=== PATIENT | male | born 1945 ===

== ENCOUNTER 2017-10-16 01:39 | Inpatient (IN) | payer MEDICARE, MEDICAID ==
[2017-10-16 01:47] VITALS: O2SAT 100
[2017-10-16] MEDS ORDERED: Alum-Mag Hydrox-Simethicone Susp (30 mL) PO PRN (02:04)
[2017-10-16] MEDS ORDERED: Magnesium Hydroxide Susp 30 ml UD PO PRN (02:04)
[2017-10-16] MEDS ORDERED: Bismuth Subsalicylate 262 mg/15 ml Sus (240 ml) PO PRN (02:04)
--- NOTE | 2017-10-16 02:13 | PCM.BM ---
<Antonietta Bal - Last Filed: 10/16/17 02:10> Treatment Plan Problems - Problems identified on initial assessmt Hopelessness/Helplessness Date Initiated: 10/16/17 Time Initiated: 02:10 Assessment reference: NA Status: Active Treatment assets and liabiliti Patient Assests: cooperative, negotiates basic needs Patient Liabilities: financial problems, substance abuse - Milieu Protocol Maintain good personal hygiene: daily Encourage regular showers, daily Remind patient to perform daily oral care, every shift Assist patient to perform ADL's Conduct patient checks and document Observation sheet: Q15 minutes Maintain personal safety: every shift Educate patient to report safety concerns to staff, every shift Monitor environment for contraband/sharps Medication safety: Monitor for expected outcome, potential side effects: every shift, Assess barriers to learning: every shift, Assess readiness for medication education: every shift <Erin Cheung - Last Filed: 10/19/17 08:16> - Diagnosis (1) Major depressive disorder Status: Acute Interventions: Medication management, Individual and group therapy, Psychoeducation 10/19/17 08:16 (2) Cocaine abuse Status: Acute Interventions: Individual and group therapy, Psychoeducation, Motivational therapy 10/19/17 08:16 <Delma Barillas - Last Filed: 10/19/17 08:22> Family Contact Family contact: Patient agrees to contact, Other (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 Psycho-education to be provided to patient/ family regarding benefits of medications and treatment adherence. Pt to be encouraged to participate in group milieu to develop effective coping skills to reduce depression and free of suicide ideation. Coordinate discharge resource needs by providing referral for psychiatric treatment follow up in the community. Discharge/Continuing Care - Education Needs Education Needs: Patient Medication, Patient Diagnosis/Disease Process, Patient Coping Skills, Patient Placement options, Patient Community resources, Patient Nutrition, Patient Health Practices/Safety, Patient Personal Hygiene/Grooming, Patient Aftercare Safety Plan - Discharge Discharge Criteria: Tolerates medication w/o severe side effects, Free of Suicidal thoughts, Free of paranoid thoughts, Free of agitation, Normal sleep pattern, Ability to care for self, Reduction of target symptoms Discharge to:: Residential - Additional Comments 10/19/17 08:07 Pt seen and discussed in team meeting. Reason for hospitalization reviewed and discussed. 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 Pt reported he began to feel depressed and suicidal at that time. Pt reported he was referred to [facility] ED by [facility]. Pt reported extensive hx of depression and anxiety. Pt reported hx of prior suicide attempts. Pt reported medication non-compliance for 'long time." Pt's social and medical issues reviewed and discussed. Pt's medications discussed. Tx plan reviewed and pt is agreeable. Pt provided assembly instructions writer with verbal authorization to contact his daughter, Leslie who resides in [place]; however, reported he does not recall her telephone number. [employer] to continue to follow case. - Treatment Team Participation Discussed with Family/SO: No Was Patient/Family/SO present at Treatment Team Meeting: Yes
--- NOTE | 2017-10-16 02:23 | ED PDOC ---
Psych Transfer Clearance - Clearance Statement Clearance Statement: Reviewed vital signs, lab results and transfer papers. Patient clinically stable for psychiatric admission.
[2017-10-16] MEDS: guaiFENesin 100 mg/5 ml Syrup UD PO PRN ×3 (03:50→21:17)
--- NOTE | 2017-10-16 07:09 | CP.PCM.HP ---
Past Patient History - CARDIAC Hx Hypertension: Yes - ENDOCRINE/METABOLIC Hx Diabetes Mellitus Type 2: Yes - HEMATOLOGICAL/ONCOLOGICAL Hx Hepatitis C: Yes - MUSCULOSKELETAL/RHEUMATOLOGICAL Hx Falls: No - GASTROINTESTINAL Other/Comment: liver cirrhosis - PSYCHIATRIC Hx Anxiety: Yes Hx Depression: Yes Hx Substance Use: Yes (more than 40 yrs) - SURGICAL HISTORY Hx Surgeries: Yes (hernia repair through [employer]) - ANESTHESIA Hx Anesthesia: Yes Meds Allergies/Adverse Reactions: Allergies Allergy/AdvReac Type Severity Reaction Status Date / Time No Known Allergies Allergy Verified 10/16/17 01:42 Results - Vital Signs Recent Vital Signs: Last Vital Signs Temp 99.7 F H 10/16/17 05:40 Pulse 82 10/16/17 05:40 Resp 18 10/16/17 05:40 BP 132/74 10/16/17 05:40 Pulse Ox 100 10/16/17 01:43 - Labs Labs: Laboratory Results - last 24 hr 10/16/17 05:38 POC Glucose (mg/dL) 244 H Assessment & Plan - Date & Time Date: 10/16/17 Time: 07:09
[2017-10-16 07:11] LABS: HEMATOCRIT 27.1 % (35.0-51.0); MEAN CELL VOLUME 84.1 fl (80.0-94.0); MEAN CORPUSCULAR HEMOGLOBIN 28.6 pg (27.0-31.0); RED CELL DISTRIBUTION WIDTH 15.7 % (11.5-14.5); WHITE BLOOD COUNT 3.7 K/uL (4.8-10.8)
--- NOTE | 2017-10-16 08:24 | CP.PCM.CON ---
History of Present Illness - History of Present Illness History of Present Illness: PCP: Not on staff reason for Consult: Management of coughing/DM and leg pains Chief Complaint: Depression/coughing The patient was seen and examined in the Psychiatric unit HPI: 72 years old Male with hx of DM II, Hepatitis C, Liver cirrhosis and depression, was transferred from the [facility] to the [facility] for management. There he referred that his car was towed with all his belongings. He became depressed, feeling hopeless and having suicidal thoughts. here at [facility] he refers a non productive cough of 1 day duration, no fever, chest pain nor SOB. He also has worsening of his left leg pain due to his Neuropathy. PMH: HTN; Hepatitis C, and Liver cirrhosis; DM II; Diabetic Neuropathy with left leg pain; Depressive and Anxiety disorder; PSH: Umbilical Hernia Repair; Parenthesis for Ascites SH: Substance abuse with Heroin and Cocaine; Alcohol abuse; smokes rarely one pack a year; live alone FH: States: No known family hx Allergies: NKDA Medication: Reviewed Review of Systems - Constitutional Constitutional: absent: Anorexia, Chills, Fatigue, Fever, Headache - EENT Eyes: absent: Diplopia, Floaters, Requires Corrective Lenses Ears: absent: Decreased Hearing, Ear Discharge, Tinnitus Nose/Mouth/Throat: absent: Epistaxis, Nasal Congestion, Nasal Discharge, Sinus Pain, Sinus Pressure - Cardiovascular Cardiovascular: absent: Chest Pain, Dyspnea, Leg Edema - Respiratory Respiratory: Cough. absent: Dyspnea, Wheezing - Gastrointestinal Gastrointestinal: absent: Constipation, Diarrhea, Nausea, Vomiting Additional comments: Full with Mild diffuse pain to the abdomen, no guarding nor rebound tenderness. - Genitourinary Genitourinary: absent: Dysuria, Flank Pain, Hematuria, Urinary Frequency - Musculoskeletal Musculoskeletal: absent: Arthralgias, Joint Swelling, Numbness Additional comments: Left leg pains - Integumentary Integumentary: absent: Pruritus, Rash, Skin Ulcer, Sores, Striae, Swelling - Neurological Neurological: Paresthesias. absent: Confusion, Focal Weakness Additional comments: Left leg pains - Psychiatric Psychiatric: Anxiety, Depression. absent: Panic Attacks - Endocrine Endocrine: absent: Palpitations, Polydipsia, Polyphagia, Polyuria - Hematologic/Lymphatic Hematologic: absent: Easy Bleeding, Easy Bruising Past Patient History - Past Medical History & Family History Past Medical History?: Yes - Past Social History Smoking Status: Light Smoker < 10 Cigarettes Daily Chewing Tobacco Use: No Cigar Use: No Alcohol: Social Drugs: Cocaine, Opiates Home Situation {Lives}: Alone - CARDIAC Hx Hypertension: Yes - PULMONARY Hx Respiratory Disorders: No - NEUROLOGICAL Hx Neurological Disorder: Yes Other/Comment: Diabetic Neuropathy left leg - HEENT Hx HEENT Problems: No - RENAL Hx Chronic Kidney Disease: No - ENDOCRINE/METABOLIC Hx Diabetes Mellitus Type 2: Yes - HEMATOLOGICAL/ONCOLOGICAL Hx Hepatitis C: Yes - INTEGUMENTARY Hx Dermatological Problems: No - MUSCULOSKELETAL/RHEUMATOLOGICAL Hx Falls: No - GASTROINTESTINAL Other/Comment: liver cirrhosis - GENITOURINARY/GYNECOLOGICAL Hx Genitourinary Disorders: No - PSYCHIATRIC Hx Anxiety: Yes Hx Depression: Yes Hx Substance Use: Yes - SURGICAL HISTORY Hx Surgeries: Yes (hernia repair through [employer]) - ANESTHESIA Hx Anesthesia: Yes Hx Anesthesia Reactions: No Meds Allergies/Adverse Reactions: Allergies Allergy/AdvReac Type Severity Reaction Status Date / Time No Known Allergies Allergy Verified 10/16/17 01:42 - Medications Medications: Current Medications Acetaminophen (Tylenol 325mg Tab) 650 mg PO Q4 PRN PRN Reason: Pain, moderate (4-7) Al Hydrox/Mg Hydrox/Simethicone (Maalox Plus 30 Ml) 30 ml PO Q4 PRN PRN Reason: Dyspepsia Bismuth Subsalicylate (Pepto-Bismol) 524 mg PO Q4 PRN PRN Reason: Diarrhea Gabapentin (Neurontin) 300 mg PO TID BRENNEN Guaifenesin (Robitussin) 100 mg PO Q6 PRN PRN Reason: Cough Last Admin: 10/16/17 03:50 Dose: 100 mg Insulin Human Regular (Humulin R) 0 units SC ACHS [facility] PRN Reason: Protocol Lisinopril (Zestril) 20 mg PO DAILY BRENNEN Lorazepam (Ativan) 0.5 mg PO HS PRN PRN Reason: Insomnia Stop: 10/30/17 02:05 Lorazepam (Ativan) 0.5 mg PO Q6 PRN PRN Reason: Anixety/Agitation Stop: 10/30/17 02:05 Magnesium Hydroxide (Milk Of Magnesia) 30 ml PO HS PRN PRN Reason: Constipation Metformin HCl (Glucophage) 1,000 mg PO BID [facility] Physical Exam - Constitutional Appears: No Acute Distress - Head Exam Head Exam: ATRAUMATIC, NORMAL INSPECTION, NORMOCEPHALIC - Eye Exam Eye Exam: EOMI, Normal appearance Pupil Exam: NORMAL ACCOMODATION, PERRL - ENT Exam ENT Exam: Mucous Membranes Moist, Normal Exam, Normal External Ear Exam - Neck Exam Neck exam: Positive for: Full Rom, Normal Inspection. Negative for: Lymphadenopathy, Tenderness - Respiratory Exam Respiratory Exam: Clear to Auscultation Bilateral. absent: Rales, Rhonchi, Wheezes - Cardiovascular Exam Cardiovascular Exam: REGULAR RHYTHM, +S1, +S2 - GI/Abdominal Exam Additional comments: Full, mild generalized tenderness, no rebound nor guarding. - Rectal Exam Rectal Exam: Deferred - Extremities Exam Extremities exam: Positive for: full ROM, normal inspection. Negative for: pedal edema - Back Exam Back exam: NORMAL INSPECTION. absent: CVA tenderness (L), CVA tenderness (R) - Neurological Exam Neurological exam: Alert, CN II-XII Intact, Oriented x3, Reflexes Normal - Psychiatric Exam Psychiatric exam: Normal Affect, Normal Mood - Skin Skin Exam: Dry, Intact, Normal Color, Warm Results - Vital Signs Recent Vital Signs: Last Vital Signs Temp 99.7 F H 10/16/17 05:40 Pulse 82 10/16/17 05:40 Resp 18 10/16/17 05:40 BP 132/74 10/16/17 05:40 Pulse Ox 100 10/16/17 01:43 - Labs Result Diagrams: 10/16/17 05:30 10/16/17 06:00 Labs: Laboratory Results - last 24 hr 10/16/17 10/16/17 05:30 05:38 WBC 3.7 L RBC 3.22 L Hgb 9.2 L Hct 27.1 L MCV 84.1 MCH 28.6 MCHC 34.0 RDW 15.7 H Plt Count 56 L POC Glucose (mg/dL) 244 H Assessment & Plan - Assessment and Plan (Free Text) Assessment: #. Anxiety aand Depressive disorder #. Suicide IDEATION #. Pancytopenia (.Anemia/ thrombocytopenia/ Leukopenia) #. DM II with Diabetic Neuropathy #. Hepatitis C with Liver Cirrhosis #. Bronchitis Plan: 72 years old Male with hx of DM II, Hepatitis C, Liver cirrhosis and depression , was transferred from the [facility] to the [facility] for management. He became depressed, feeling hopeless and having suicidal thoughts. Here at [facility] he refers a non productive cough of 2 day duration, along with pains to the left lower extremity. #. Anxiety and Depressive disorder, with suicide Ideation - Psychiatric management #. Pancytopenia (.Anemia/ Thrombocytopenia/ Leukopenia), most likely is chronic and secondary to Hepatitis C bone suppression and liver failure - follow Iron panel/ folic Acid/ Vitamin B12/ Hepatitis Panel - Monitor Hb/ platelets and WBC #. DM II with Hyperglycemia and Diabetic Neuropathy withj painful left leg - HbA1c - Metformin - Regular insulin sliding scale according to Accucheck - Neurontin #. Hepatitis C with Liver Cirrhosis stable - follow Hepatitis Panel - Ammonia #. HTN - Lisinopril #. Non productive cough with Bronchitis r/o Influenza - Follow Influenza A/B antibody - Anushkasin #. Code Status: Full - Date & Time Date: 10/16/17 Time: 08:24
[2017-10-16 08:26] LABS: ALKALINE PHOSPHATASE 68 U/L (38-126); ALT/SGPT 45 U/L (21-72); AST/SGOT 37 U/L (17-59); BILIRUBIN,TOTAL 1.4 mg/dl (0.2-1.3); BLOOD UREA NITROGEN 19 mg/dl (9-20); CALCIUM 8.1 mg/dL (8.4-10.2); CARBON DIOXIDE 26 mmol/L (22-30); CHLORIDE 105 mmol/L (98-107); CHOLESTEROL 152 mg/dL (0-199); GFR AFRICAN-AMERICAN > 60; GLUCOSE,RANDOM 253 mg/dL (75-110); MAGNESIUM 1.7 MG/DL (1.6-2.3); POTASSIUM 4.2 MMOL/L (3.6-5.0); SODIUM 136 mmol/l (132-148); TOTAL PROTEIN 6.4 G/DL (6.3-8.2)
[2017-10-16 08:29] LABS: ALB/GLOB RATIO 0.7 (1.0-2.1)
[2017-10-16 08:43] LABS: T4 10.7 ug/dl (5.5-11.0)
[2017-10-16 08:56] LABS: THYROID STIMULATING HORMONE 0.71 mIU/ML (0.46-4.68)
[2017-10-16] MEDS: Insulin Regular 100 units/ml SC SCH ×4 (09:19→21:35)
--- NOTE | 2017-10-16 10:40 | RAD ---
HISTORY: Persistent coughing COMPARISON: No prior. TECHNIQUE: Chest PA and lateral FINDINGS: LUNGS: No active pulmonary disease. PLEURA: No significant pleural effusion identified. No pneumothorax apparent. CARDIOVASCULAR: Normal. OSSEOUS STRUCTURES: No significant abnormalities. VISUALIZED UPPER ABDOMEN: Normal. OTHER FINDINGS: None. IMPRESSION: No acute cardiopulmonary disease appreciated.
[2017-10-16 11:23] LABS: IRON 47 ug/dL (49-181)
--- NOTE | 2017-10-16 13:48 | PCM.PSYCH ---
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 presents to [facility] via [facility] after being transferred from [facility]. pt was taken to [facility] from [place] police department after pt reportedly was at the police station looking into his care that was reportedly impounded after being parked in a handicap spot. pt reports that he had all of his belongings in his car including his "medications for nerve pain and blood pressure medications". Admitted pt became overwhelmed and felt as though being overwhelmed and felt as though the devil was testing him and that he could not longer take it and thought about taking his life. pt reports that he was staying with a friend in [place] as he was making his way back to "[facility]" where he has been living. Reportedly pt was seeing a psychiatrist in [facility] up until 1.5 years ago after being seen by said psychiatrist for approx. 5-6 years. Pt. reported was seeing said psychiatrist for depression. Pt. has an admitted hx. of depression since 2007 when he became depressed after retiring. 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 Reportedly pt. was in [place] and "threw himself" in front of truck resulting "broken bones". Reports that has been in hospitals multiple times for periods of depression (pt. admittedly has had only one suicide attempt ). Pt. admits that at times when depressed will see shadows near doorways ( denies known person or being told or hallucinations). Reports in past has taken seroquel. Pt. has history of elevated amonia levels, hepatitis C, pancreatitis. At times reports amonia levels correlates with depression. Denies prior psychiatric treatment to 2007. Pt. reports completed high school, some college. 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 reportedly has traveled throughout various parts of the world. reports that elevated ammonia levels are related to history of hepatitis c ( admits unknown etiology). Pt. has been twice, reportedly "to younger women who agn Pt. has several adult children (one reportedly wheel fitter (daughter ) and one (son) reportedly in business. Has other adult chidren who somewhat estranged secondary "they re involved in various things I do not like". Pt. is born in [place], family is originally from [place]. Pt. denies use of drugs. History of Present Illness and Precipitating Events: please see above Current Medications: Active Medications Generic Name Dose Route Start Last Admin Trade Name Freq PRN Reason Stop Dose Admin Acetaminophen 650 mg 10/16/17 02:04 Tylenol 325mg Tab PO Q4 PRN Pain, moderate (4-7) Al Hydrox/Mg Hydrox/Simethicone 30 ml 10/16/17 02:04 Maalox Plus 30 Ml PO Q4 PRN Dyspepsia Bismuth Subsalicylate 524 mg 10/16/17 02:04 Pepto-Bismol PO Q4 PRN Diarrhea Gabapentin 300 mg 10/16/17 09:00 10/16/17 09:18 Neurontin PO 300 mg TID BRENNEN Administration Guaifenesin 100 mg 10/16/17 03:31 10/16/17 09:23 Robitussin PO 100 mg Q6 PRN Administration Cough Insulin Human Regular 0 units 10/16/17 07:30 10/16/17 09:19 Humulin R SC 2 u ACHS BRENNEN Administration Protocol Lisinopril 20 mg 10/16/17 09:00 10/16/17 09:18 Zestril PO 20 mg DAILY BRENNEN Administration Lorazepam 0.5 mg 10/16/17 02:04 Ativan PO 10/30/17 02:05 HS PRN Insomnia Lorazepam 0.5 mg 10/16/17 02:04 Ativan PO 10/30/17 02:05 Q6 PRN Anixety/Agitation Magnesium Hydroxide 30 ml 10/16/17 02:04 Milk Of Magnesia PO HS PRN Constipation Metformin HCl 1,000 mg 10/16/17 09:00 10/16/17 09:18 Glucophage PO 1,000 mg BID BRENNEN Administration Past Psychiatric History - Past Psychiatric History Prior Professional Help: see above History of ETOH/Drug Use: pt denies History of Family Illness: pt denies had one brother who is was killed by car Pertinent Medical Hx (Current Medical&Sleep Prob, Allergies): Allergies Allergy/AdvReac Type Severity Reaction Status Date / Time No Known Allergies Allergy Verified 10/16/17 01:42 Gabapentin [Neurontin] 300 mg PO TID 10/16/17 Lisinopril [Zestril] 20 mg PO DAILY 10/16/17 MetFORMIN [glucoPHAGE] 1,000 mg PO BID 10/16/17 Review of Systems - Psychiatric Psychiatric: Anhedonia, Depression, Suicidal Ideation Additional comments: hx of past visual hallucinations Mental Status Examination - Affect Affect: Constricted - Motor Activity Motor Activity: Calm, Psychomotor Retardation - Reliability in Providing Information Reliability in Providing Information: Fair - Speech Speech: Organized - Mood Mood: Depressed - Formal Thought Process Formal Thought Process: No Impairment Additional comments: no current - Obsessions/Compulsions Obsessions: No Compulsions: No - Cognitive Functions Orientation: Person, Place, Situation, Time Sensorium: Alert Judgement: Imparied, as evidence by: Other, Intact, as evidence by: Other - Risk Risk: Suicidal - Strength & Assets Inventory Strength & Assets Inventory: Intelligence, Family support, Cooperative - Limitations Limitations: Living alone DSM 5 DX - DSM 5 DSM 5 Diagnosis: major depressive disorder moderate to severe (no current hallucinations) {past history) History of suicide attempt (reportedly throwing self in front of truck) Hx. neuropathic pain Hx. diabetes Hx. htn - Recommended/Plan of Treatment Treatment Recommendations and Plan of Treatment: inpt admission per attending vital signs and clinical observation per protocol and per status hospitalist consult start pt lexapro 5mg po day (titrate per clinical status) assess need for antipsychotic discharge planning in progress Projected ELOS: 5-7 days Prognosis: guarded Discharge Plan and Discharge Criteria: safety - Smoking Cessation Smoking Cessation Initiated: No
[2017-10-16 17:09] LABS: FOLATE 16.2 ng/mL
[2017-10-17] MEDS: Insulin Regular 100 units/ml SC SCH ×4 (08:48→21:06)
[2017-10-17] MEDS: guaiFENesin 100 mg/5 ml Syrup UD PO PRN (08:59)
--- NOTE | 2017-10-17 22:17 | PCM.PYCHPN ---
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) Problems Identified/Issues Discussed: alteration in mood alteration in coping alteration in hematologic status Medical Problems: decreased cbc/diff Diagnostic Results: per chart DSM 5 Symptoms Update: alteration in mood Medication Change: No Medical Record Reviewed: Yes Consults ordered or reviewed: hospitalist following pt Mental Status Examination - Cognitive Function Orientation: Person, Place, Situation, Time Attention: WNL Concentration: WNL Association: WNL Fund of Knowledge: WNL Decription of patient's judgement and insights: impaired - Mood Mood: Depressed - Affect Affect: Constricted - Formal Thought Process Formal Thought Process: No Impairment - Homicidal Ideation Homicidal Ideation: No Goal/Treatment Plan - Goal/Treatment Plan Progress Toward Problem(s) and Goals/Treatment Plan: inpt milieu adjust meds per status repeat cbc with diff am with re consult hospitalist with results vital signs and clinical observation per protocol and per status hospitalist consult start pt lexapro 5mg po day (titrate per clinical status) pt requests assistance with letter verifying inpt adm status related to reported impoundment of car bleeding assessment bruising assessment decreased plts dicharge planning in progress Estimated Date of D/C: 10/22/17 - Smoking Cessation Smoking Cessation Initiated: No Reason for not providing: pt defers
[2017-10-18] MEDS: guaiFENesin 100 mg/5 ml Syrup UD PO PRN ×2 (05:32→17:30)
[2017-10-18 06:19] LABS: BASO % 0.8 % (0.0-2.0); EOS # 0.3 K/uL (0.0-0.7); EOS % 9.2 % (0.0-4.0); HEMATOCRIT 26.9 % (35.0-51.0); LYMPH # 0.8 K/uL (1.0-4.3); LYMPH % 22.5 % (20.0-40.0); MEAN CELL VOLUME 83.9 fl (80.0-94.0); MEAN CORPUSCULAR HEMOGLOBIN 28.6 pg (27.0-31.0); MEAN CORPUSCULAR HGB CONC 34.1 g/dL (33.0-37.0); MEAN PLATELET VOLUME 8.4 fl (7.2-11.7); MONO # 0.4 K/uL (0.0-0.8); MONO % 11.4 % (0.0-10.0); NEUT # 1.9 K/uL (1.8-7.0); NEUT % 56.1 % (50.0-75.0); RED CELL DISTRIBUTION WIDTH 16.1 % (11.5-14.5); WHITE BLOOD COUNT 3.4 K/uL (4.8-10.8)
[2017-10-18] MEDS: Insulin Regular 100 units/ml SC SCH ×4 (09:01→21:03)
--- NOTE | 2017-10-18 11:15 | PCM.PYCHPN ---
Psychiatric Progress Note - Psychiatric Progress Note Patient seen today, length of contact: Patient evaluated, chart reviewed, case discussed w/ team Patient Chief Complaint: "I got depressed." Problems Identified/Issues Discussed: Patient discussed how he came to the hospital due to feeling depressed and suicidal. He reports a history of suicide attempts, but denies current ideation or plan. He reports that he was non-compliant with medications in the past and has also used crack cocaine recently. He reports that he has a history of seeing shadows, but denies current AH/VH/paranoia/delusions. He continues to feel depressed at this time. Medication Change: No Medical Record Reviewed: Yes Consults ordered or reviewed: Medicine consult Mental Status Examination - Cognitive Function Orientation: Person, Place, Situation, Time Memory: Intact Attention: WNL Concentration: WNL Association: WNL Fund of Knowledge: [facility] Decription of patient's judgement and insights: Fair Insight/Judgment - Mood Mood: Depressed - Affect Affect: Constricted, Depressed - Speech Speech: Appropriate - Formal Thought Process Formal Thought Process: No Impairment Psychotic Thoughts and Behaviors: NO AH/VH/paranoia/delusions - Suicidal Ideation Suicidal Ideation: No - Homicidal Ideation Homicidal Ideation: No Goal/Treatment Plan - Goal/Treatment Plan Need for Continued Stay: Remain at risks for inpatient hospitalization, Severe depression anxiety Progress Toward Problem(s) and Goals/Treatment Plan: Major Depressive Disorder; Cocaine abuse -Continue Lexapro -Individual and group therapy -Disposition planning -Psychoeducation re: substance abuse Estimated Date of D/C: 10/21/17
[2017-10-19] MEDS: Insulin Regular 100 units/ml SC SCH ×5 (08:31→21:07)
--- NOTE | 2017-10-19 10:03 | PCM.PYCHPN ---
Psychiatric Progress Note - Psychiatric Progress Note Patient seen today, length of contact: Patient evaluated, chart reviewed, case discussed w/ team Patient Chief Complaint: "I'm depressed." Problems Identified/Issues Discussed: Patient continues to report that he feels depressed. He states that he continues to have suicidal ideation w/o plan and is afraid he will harm himself if discharged. He is able to contract for safety on the unit. He denies adverse effects to Lexapro. We discussed continue titration of Lexapro. No AH/VH/paranoia/delusions. Medication Change: No Medical Record Reviewed: Yes Consults ordered or reviewed: Medicine consult Mental Status Examination - Cognitive Function Orientation: Person, Place, Situation, Time Memory: Intact Attention: WNL Concentration: WNL Association: WNL Fund of Knowledge: [facility] Decription of patient's judgement and insights: Fair Insight/Judgment - Mood Mood: Depressed - Affect Affect: Constricted, Depressed - Speech Speech: Appropriate - Formal Thought Process Formal Thought Process: No Impairment Psychotic Thoughts and Behaviors: NO AH/VH/paranoia/delusions - Suicidal Ideation Suicidal Ideation: Yes Plan: NO plan/intent - Homicidal Ideation Homicidal Ideation: No Goal/Treatment Plan - Goal/Treatment Plan Need for Continued Stay: Remain at risks for inpatient hospitalization, Severe depression anxiety Progress Toward Problem(s) and Goals/Treatment Plan: Major Depressive Disorder; Cocaine abuse; patient needs continued hospitalization for treatment and safety. -Increase Lexapro to 10 mg PO Daily -Individual and group therapy -Disposition planning -Psychoeducation re: substance abuse Estimated Date of D/C: 10/22/17
[2017-10-19] MEDS: guaiFENesin 100 mg/5 ml Syrup UD PO PRN (17:46)
[2017-10-20] MEDS: Insulin Regular 100 units/ml SC SCH ×4 (08:26→21:10)
--- NOTE | 2017-10-20 08:37 | PCM.PYCHPN ---
Psychiatric Progress Note - Psychiatric Progress Note Patient seen today, length of contact: Patient evaluated, chart reviewed, case discussed w/ team Patient Chief Complaint: "I'm depressed." Problems Identified/Issues Discussed: Patient reports that he feels depressed, but denies acute ideation to harm self or others. He is anxious about his lack of housing and lack of money. He denies adverse effects to Lexapro. No AH/VH/paranoia/delusions. Medication Change: No Medical Record Reviewed: Yes Consults ordered or reviewed: Medicine consult Mental Status Examination - Cognitive Function Orientation: Person, Place, Situation, Time Memory: Intact Attention: WNL Concentration: WNL Association: [facility] Fund of Knowledge: [facility] Decription of patient's judgement and insights: Fair Insight/Judgment - Mood Mood: Depressed - Affect Affect: Depressed - Speech Speech: Appropriate - Formal Thought Process Formal Thought Process: No Impairment Psychotic Thoughts and Behaviors: NO AH/VH/paranoia/delusions - Suicidal Ideation Suicidal Ideation: No - Homicidal Ideation Homicidal Ideation: No Goal/Treatment Plan - Goal/Treatment Plan Need for Continued Stay: Remain at risks for inpatient hospitalization, Severe depression anxiety Progress Toward Problem(s) and Goals/Treatment Plan: Major Depressive Disorder; Cocaine abuse; patient needs continued hospitalization for treatment and safety. -Lexapro 10 mg PO Daily -Individual and group therapy -Disposition planning -Psychoeducation re: substance abuse Estimated Date of D/C: 10/22/17 - Smoking Cessation Smoking Cessation Initiated: No Reason for not providing: Not indicated
--- NOTE | 2017-10-21 07:44 | PCM.PYCHPN ---
Psychiatric Progress Note - Psychiatric Progress Note Patient seen today, length of contact: Patient evaluated, chart reviewed, case discussed w/ team Patient Chief Complaint: "I'm okay." Problems Identified/Issues Discussed: Patient reports that his mood is improving. Patient was encouraged to participate in groups. He has improved sleep and appetite. He denies acute ideation to harm self or others. He is anxious about his lack of housing and lack of money. He denies adverse effects to Lexapro. No AH/VH/paranoia/ delusions. Medication Change: No Medical Record Reviewed: Yes Consults ordered or reviewed: Medicine consult appreciated Mental Status Examination - Cognitive Function Orientation: Person, Place, Situation, Time Memory: Intact Attention: WNL Concentration: WNL Association: WNL Fund of Knowledge: [facility] Decription of patient's judgement and insights: Fair Insight/Judgment - Mood Mood: Depressed - Affect Affect: Broad - Speech Speech: Appropriate - Formal Thought Process Formal Thought Process: No Impairment Psychotic Thoughts and Behaviors: NO AH/VH/paranoia/delusions - Suicidal Ideation Suicidal Ideation: No - Homicidal Ideation Homicidal Ideation: No Goal/Treatment Plan - Goal/Treatment Plan Need for Continued Stay: Remain at risks for inpatient hospitalization, Severe depression anxiety Progress Toward Problem(s) and Goals/Treatment Plan: Major Depressive Disorder; Cocaine abuse; patient is improving clinically, will likely discharge tomorrow if he continues to improve. -Lexapro 10 mg PO Daily -Individual and group therapy -Disposition planning -Psychoeducation re: substance abuse Estimated Date of D/C: 10/22/17 - Smoking Cessation Smoking Cessation Initiated: No Reason for not providing: Not indicated
[2017-10-21] MEDS: Insulin Regular 100 units/ml SC SCH ×3 (08:55→17:15)
[2017-10-21 16:13] VITALS: RESP 20
[2017-10-22 06:07] VITALS: PULSE 75; TEMP 97.3
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
[2017-10-22] MEDS: Insulin Regular 100 units/ml SC SCH ×2 (08:51→12:27)
[2017-10-22 08:52] VITALS: BP 114/65
== END 2017-10-22 13:28 | disposition home or self-care (01) | DRG 881 ==
LOC: H.ER 01:39 → H.STEP 01:45
PROVIDERS: ADMIT Psychiatry & Neurology Psychiatry; ATTEND Psychiatry & Neurology Psychiatry
PROC: GZHZZZZ Group Psychotherapy (ICD-10-PCS; principal; 2017-10-16)
PROC: HZ56ZZZ Individual Psychotherapy for Substance Abuse Treatment, Psychoeducation (ICD-10-PCS; 2017-10-16)
DX: F32.9 Major depressive disorder, single episode, unspecified (principal); D61.818 Other pancytopenia; E11.40 Type 2 diabetes mellitus with diabetic neuropathy, unspecified; E11.65 Type 2 diabetes mellitus with hyperglycemia; R45.851 Suicidal ideations; B19.20 Unspecified viral hepatitis C without hepatic coma; F17.210 Nicotine dependence, cigarettes, uncomplicated; J40 Bronchitis, not specified as acute or chronic; I10 Essential (primary) hypertension; K74.60 Unspecified cirrhosis of liver; Z91.14 Patient's other noncompliance with medication regimen; F14.10 Cocaine abuse, uncomplicated

== ENCOUNTER 2017-11-23 07:04 | Inpatient (IN) | payer MEDICAID, MEDICARE ==
[2017-11-23 07:09] VITALS: BMI 24.0
[2017-11-23] MEDS ORDERED: Sodium Chloride 0.9% 1,000 ML IV STA (07:40)
--- NOTE | 2017-11-23 07:45 | ED PDOC ---
HPI: Abdomen Time Seen by Provider: 11/23/17 07:35 Chief Complaint (Nursing): Abdominal Pain Chief Complaint (Provider): Abdominal pain History Per: Patient History/Exam Limitations: no limitations Onset/Duration Of Symptoms: Days (2) Outside of [place] travel?: No Current Symptoms Are (Timing): Still Present Location Of Pain/Discomfort: Diffuse Associated Symptoms: Nausea, Vomiting, Diarrhea Additional History Per: Patient Additional Complaint(s): 72yo male with history of diabetes and cirrhosis, presents to ED with complaints of abdominal pain and distention associated with nausea, vomiting and diarrhea for the past 2 days. He denies any associated fever or bloody stool. Patient has no other complaints. Past Medical History Reviewed: Historical Data, Nursing Documentation, Vital Signs Vital Signs: Last Vital Signs Temp 98.4 F 11/23/17 07:09 Pulse 93 H 11/23/17 07:09 Resp 20 11/23/17 07:09 BP 148/84 11/23/17 07:09 Pulse Ox 100 11/23/17 12:00 - Medical History PMH: Anxiety, Depression, HTN Denies: Chronic Kidney Disease - Surgical History Surgical History: No Surg Hx - Family History Family History: States: No Known Family Hx - Home Medications Home Medications: Ambulatory Orders Medication Instructions Recorded Escitalopram [Lexapro] 10 mg PO DAILY #30 tab 10/20/17 Gabapentin [Neurontin] 300 mg PO TID #90 cap 10/20/17 Lisinopril [Zestril] 20 mg PO DAILY #30 tablet 10/20/17 MetFORMIN [glucoPHAGE] 1,000 mg PO BID #60 tab 10/20/17 GlipiZIDE [Glucotrol] 5 mg PO ACB #30 tab 10/22/17 - Allergies Allergies/Adverse Reactions: Allergies Allergy/AdvReac Type Severity Reaction Status Date / Time No Known Allergies Allergy Verified 11/23/17 07:15 Review of Systems ROS Statement: Except As Marked, All Systems Reviewed And Found Negative Constitutional: Negative for: Fever Gastrointestinal: Positive for: Nausea, Vomiting, Abdominal Pain, Diarrhea. Negative for: Hematochezia Physical Exam - Reviewed Nursing Documentation Reviewed: Yes Vital Signs Reviewed: Yes - Physical Exam Appears: Positive for: Non-toxic Head Exam: Positive for: ATRAUMATIC, NORMAL INSPECTION, NORMOCEPHALIC Skin: Positive for: Normal Color Eye Exam: Positive for: Normal appearance Neck: Positive for: Supple Cardiovascular/Chest: Positive for: Regular Rate, Rhythm Respiratory: Positive for: Normal Breath Sounds. Negative for: Respiratory Distress Gastrointestinal/Abdominal: Positive for: Soft, Organomegaly (hepatomegaly), Asicites (ascitic with fluid waves) Extremity: Positive for: Pedal Edema (1+ pedal edema bilaterally) Neurologic/Psych: Positive for: Alert, Oriented. Negative for: Motor/Sensory Deficits - Laboratory Results Result Diagrams: 11/23/17 08:33 11/23/17 08:33 - ECG O2 Sat by Pulse Oximetry: 100 (RA) Pulse Ox Interpretation: Normal Medical Decision Making Medical Decision Making: Impression: Abdominal pain and distention Plan: -- CT Abdomen w/o contrast -- Labs -- IV Fluids -- Zofran 4mg IVP -- Pepcid 20mg IVP Time: 1038 CT Abdomen FINDINGS: LOWER THORAX: Unremarkable. LIVER: There is a lobular contour to the liver which is also mildly shrunken, compatible with cirrhosis. A few punctate calcifications seen scattered throughout the liver suggestive granulomatous changes. Intrahepatic biliary duct dilatation cannot be excluded as well. GALLBLADDER AND BILE DUCTS: Gallbladder is mildly distended with cholelithiasis. No significant mural thickening, particularly in light of upper abdominal ascites. PANCREAS: Unremarkable. No gross lesion or ductal dilatation. SPLEEN: The spleen is enlarged to 16.0 cm without focal mass appreciable. ADRENALS: Unremarkable. No mass. KIDNEYS AND URETERS: No definitive focal pathology appreciable. . No hydronephrosis. No solid mass. VASCULATURE: Limited atherosclerotic changes seen related to the abdominal aorta, celiac axis, SMA and iliofemoral system. No aortic aneurysm. BOWEL: There are numerous central small bowel loops which appear thick-walled but are poorly evaluated due lack of oral and intravenous contrast administration. Moderate abdominal ascites appreciated with reactive changes in the mesenteric fat suspicious for possible infectious enteritis of indeterminate etiology. Consider infectious or inflammatory causes with ischemia not completely excluded though not definite. APPENDIX: Unremarkable. Normal appendix. PERITONEUM: Moderate ascites is appreciated including injected fat and even reticular changes which may indicate varices in the upper abdomen or even metastatic disease. LYMPH NODES: No gross retroperitoneal lymphadenopathy. Mesenteric can be evaluated for lymph nodes due to ascites and reactive change diffusely. BLADDER: The bladder wall appears thickened and an element of outlet obstruction or cystitis is not excluded. Other etiologies including neoplasm are not excluded. REPRODUCTIVE: A 4.6 x 6.1 cm right sided cyst is identified immediately to the right of the urinary bladder potentially reflecting a urinary bladder diverticulum or possible peritoneal cyst. None is seen at the left. BONES: No acute fracture. OTHER FINDINGS: None. IMPRESSION: Limited examination due lack of contrast agents, however, bowel pattern suspicious for enteritis affecting the majority of small bowel. Please see differential diagnosis above. No bowel obstruction. A cirrhotic shrunken liver is appreciated with potential intrahepatic biliary dilatation. Limited cholelithiasis is seen within a distended gallbladder. No definite radiodense choledocholithiasis. Splenomegaly may be related and therefore hepatofugal blood flow is in question. Moderate ascites and reactive mesenteric change. Underlying mesenteric metastasis and/or varices are not completely excluded. Other lesser findings as discussed above. Time: 1156 Patient to be admitted to Telemetry under Dr. Alek Galloway for pancreatitis and colitis. Dr. Galloway aware and accepts patient. Dr. Celis aware of case as well. Scribe Attestation: Documented by Janene Ramirez, acting as a scribe for Christian Montiel MD. Provider Scribe Attestation: All medical record entries made by the Scribe were at my direction and personally dictated by me. I have reviewed the chart and agree that the record accurately reflects my personal performance of the history, physical exam, medical decision making, and the department course for this patient. I have also personally directed, reviewed, and agree with the discharge instructions and disposition. Disposition - Clinical Impression Clinical Impression: Abdominal pain, Pancreatitis, Colitis - Patient ED Disposition Is Patient to be Admitted: Yes - Disposition Disposition Time: 12:01 Condition: FAIR Forms: [email or web address] ([employer]) - Pt Status Changed To: Hospital Disposition Of: Inpatient - Admit Certification Admit to Inpatient:: After my assessment, the patient will require hospitalization for at least two midnights. This is because of the severity of symptoms shown, intensity of services needed, and/or the medical risk in this patient being treated as an outpatient. - POA Present On Arrival: None
[2017-11-23 08:47] LABS: BASO % 0.4 % (0.0-2.0); EOS # 0.2 K/uL (0.0-0.7); EOS % 3.9 % (0.0-4.0); HEMOGLOBIN 8.6 g/dL (12.0-18.0); LYMPH # 0.6 K/uL (1.0-4.3); LYMPH % 10.7 % (20.0-40.0); MEAN CELL VOLUME 82.9 fl (80.0-94.0); MEAN CORPUSCULAR HEMOGLOBIN 27.2 pg (27.0-31.0); MEAN CORPUSCULAR HGB CONC 32.8 g/dL (33.0-37.0); MEAN PLATELET VOLUME 7.8 fl (7.2-11.7); MONO # 0.4 K/uL (0.0-0.8); MONO % 6.6 % (0.0-10.0); NEUT # 4.3 K/uL (1.8-7.0); NEUT % 78.4 % (50.0-75.0); RBC 3.17 Mil/uL (4.40-5.90); RED CELL DISTRIBUTION WIDTH 15.4 % (11.5-14.5); WHITE BLOOD COUNT 5.5 K/uL (4.8-10.8)
[2017-11-23 09:05] LABS: ALB/GLOB RATIO 0.7 (1.0-2.1); ALBUMIN 2.8 g/dL (3.5-5.0); ALT/SGPT 50 U/L (21-72); AST/SGOT 54 U/L (17-59); BLOOD UREA NITROGEN 13 mg/dl (9-20); CALCIUM 8.4 mg/dL (8.4-10.2); GFR AFRICAN-AMERICAN > 60; GFR NON-AFRICAN AMERICAN > 60; LIPASE 500 U/L (23-300)
--- NOTE | 2017-11-23 09:56 | CT ---
PROCEDURE: CT Abdomen and Pelvis without intravenous contrast HISTORY: abd pain cirrhosis COMPARISON: None. TECHNIQUE: Helical CT of the abdomen and pelvis was performed without oral or intravenous contrast as per referring physician request.. Contrast Dose: None Radiation dose: Total exam DLP = 805.01 mGy-cm. This CT exam was performed using one or more of the following dose reduction techniques: Automated exposure control, adjustment of the mA and/or kV according to patient size, and/or use of iterative reconstruction technique. FINDINGS: LOWER THORAX: Unremarkable. LIVER: There is a lobular contour to the liver which is also mildly shrunken, compatible with cirrhosis. A few punctate calcifications seen scattered throughout the liver suggestive granulomatous changes. Intrahepatic biliary duct dilatation cannot be excluded as well. GALLBLADDER AND BILE DUCTS: Gallbladder is mildly distended with cholelithiasis. No significant mural thickening, particularly in light of upper abdominal ascites. PANCREAS: Unremarkable. No gross lesion or ductal dilatation. SPLEEN: The spleen is enlarged to 16.0 cm without focal mass appreciable. ADRENALS: Unremarkable. No mass. KIDNEYS AND URETERS: No definitive focal pathology appreciable. . No hydronephrosis. No solid mass. VASCULATURE: Limited atherosclerotic changes seen related to the abdominal aorta, celiac axis, SMA and iliofemoral system. No aortic aneurysm. BOWEL: There are numerous central small bowel loops which appear thick-walled but are poorly evaluated due lack of oral and intravenous contrast administration. Moderate abdominal ascites appreciated with reactive changes in the mesenteric fat suspicious for possible infectious enteritis of indeterminate etiology. Consider infectious or inflammatory causes with ischemia not completely excluded though not definite. APPENDIX: Unremarkable. Normal appendix. PERITONEUM: Moderate ascites is appreciated including injected fat and even reticular changes which may indicate varices in the upper abdomen or even metastatic disease. LYMPH NODES: No gross retroperitoneal lymphadenopathy. Mesenteric can be evaluated for lymph nodes due to ascites and reactive change diffusely. BLADDER: The bladder wall appears thickened and an element of outlet obstruction or cystitis is not excluded. Other etiologies including neoplasm are not excluded. REPRODUCTIVE: A 4.6 x 6.1 cm right sided cyst is identified immediately to the right of the urinary bladder potentially reflecting a urinary bladder diverticulum or possible peritoneal cyst. None is seen at the left. BONES: No acute fracture. OTHER FINDINGS: None. IMPRESSION: Limited examination due lack of contrast agents, however, bowel pattern suspicious for enteritis affecting the majority of small bowel. Please see differential diagnosis above. No bowel obstruction. A cirrhotic shrunken liver is appreciated with potential intrahepatic biliary dilatation. Limited cholelithiasis is seen within a distended gallbladder. No definite radiodense choledocholithiasis. Splenomegaly may be related and therefore hepatofugal blood flow is in question. Moderate ascites and reactive mesenteric change. Underlying mesenteric metastasis and/or varices are not completely excluded. Other lesser findings as discussed above.
[2017-11-23 13:18] LABS: VENOUS BLOOD GAS PCO2 35 mmHg (40-60); VENOUS BLOOD GAS PO2 84 mm/Hg (30-55)
[2017-11-23] MEDS ORDERED: Dextrose 50% SYRINGE Inj (50 ml) IV PRN (15:26)
[2017-11-23] MEDS ORDERED: Glucagon Recombinant 1 mg Inj IM PRN (15:26)
[2017-11-23 17:01] LABS: INR 1.2 (0.9-1.2); PARTIAL THROMBOPLASTIN TIME 27.9 Seconds (25.6-37.1); PROTHROMBIN TIME 13.4 Seconds (9.8-13.1)
[2017-11-23] MEDS: Insulin Regular 100 units/ml SC SCH ×2 (17:13→21:47)
[2017-11-23] MEDS ORDERED: Sodium Chloride 0.9% 1,000 ML IV SCH (18:00)
[2017-11-23] MEDS: Pantoprazole 40 mg EC Tab PO SCH (18:10)
--- NOTE | 2017-11-23 18:40 | CP.PCM.HP ---
History of Present Illness - History of Present Illness History of Present Illness: 72 yr old M presents to ED with complaint of worsening abdominal x 1 week. PMHx includes NIDDM Type 2, HTN, Hep C, liver cirrhosis with ascites (last paracentesis was 09/2017), diabetic neuropathy, major depressive disorder, anxiety, Etoh abuse, cocaine and heroine abuse. Associated symptoms include 1 episode of vomiting yesterday, body aches and diarrhea. Patient reports last use of cocaine and heroine was over 5 months ago. Emergency contact: Leslie Nunes-daughter [phone] PMD: none, patient recently came from [place] Specialists: none Hospital admissions: [facility] unit for major depressive disorder PMHx: NIDDM Type 2, HTN, Hep C, liver cirrhosis with ascites (last paracentesis was 09/2017), diabetic neuropathy, major depressive disorder, anxiety, Etoh abuse, cocaine and heroine abuse SurgHx: abdominal hernia repair FMHx: mother at 65 from Etoh abuse complications, father of [place] in his 90's, siblings and his children are healthy SocHx: denies tobacco, Etoh abuse (last use over 5 months ago), heroine and cocaine abuse (last over 5 months ago) Medications: see medication reconciliation Allergies: NKDA Present on Admission - Present on Admission Any Indicators Present on Admission: No History of DVT/PE: No History of Uncontrolled Diabetes: No Urinary Catheter: No Decubitus Ulcer Present: No History Surgical Site Infection Following: None Review of Systems - Review of Systems All systems: reviewed and no additional remarkable complaints except (for what is mentioned in the HPI) - Constitutional Constitutional: absent: Chills, Fever - EENT Eyes: absent: Blurred Vision, Change in Vision Nose/Mouth/Throat: absent: Nasal Congestion, Nasal Discharge - Cardiovascular Cardiovascular: absent: Chest Pain, Palpitations - Respiratory Respiratory: absent: Cough, Hemoptysis - Gastrointestinal Gastrointestinal: Abdominal Pain, Diarrhea, Nausea, Vomiting (one episode yesterday) - Genitourinary Genitourinary: absent: Difficulty Urinating, Dysuria - Musculoskeletal Musculoskeletal: absent: Arthralgias, Muscle Weakness - Integumentary Integumentary: absent: Bleeding Lesions - Psychiatric Psychiatric: absent: Anxiety, Depression - Endocrine Endocrine: absent: Polydipsia, Polyuria - Hematologic/Lymphatic Hematologic: absent: Easy Bleeding, Easy Bruising Past Patient History - Past Medical History & Family History Past Medical History?: Yes - Past Social History Smoking Status: Former Smoker - CARDIAC Hx Hypertension: Yes - PULMONARY Hx Respiratory Disorders: No - NEUROLOGICAL Hx Neurological Disorder: Yes Other/Comment: Diabetic Neuropathy left leg - HEENT Hx HEENT Problems: No - RENAL Hx Chronic Kidney Disease: No - ENDOCRINE/METABOLIC Hx Diabetes Mellitus Type 2: Yes - HEMATOLOGICAL/ONCOLOGICAL Hx Hepatitis C: Yes - INTEGUMENTARY Hx Dermatological Problems: No - MUSCULOSKELETAL/RHEUMATOLOGICAL Hx Falls: No - GASTROINTESTINAL Other/Comment: liver cirrhosis - GENITOURINARY/GYNECOLOGICAL Hx Genitourinary Disorders: No - PSYCHIATRIC Hx Anxiety: Yes Hx Depression: Yes - SURGICAL HISTORY Hx Surgeries: Yes (hernia repair through umbilicus) - ANESTHESIA Hx Anesthesia: Yes Hx Anesthesia Reactions: No Meds Allergies/Adverse Reactions: Allergies Allergy/AdvReac Type Severity Reaction Status Date / Time No Known Allergies Allergy Verified 11/23/17 07:15 Physical Exam - Constitutional Appears: No Acute Distress - Head Exam Head Exam: ATRAUMATIC, NORMOCEPHALIC - Eye Exam Eye Exam: EOMI - ENT Exam ENT Exam: Mucous Membranes Moist - Neck Exam Neck exam: Positive for: Full Rom. Negative for: Lymphadenopathy - Respiratory Exam Respiratory Exam: Clear to Auscultation Bilateral, NORMAL BREATHING PATTERN - Cardiovascular Exam Cardiovascular Exam: REGULAR RHYTHM, +S1, +S2 - GI/Abdominal Exam GI & Abdominal Exam: Distended, Normal Bowel Sounds, Soft, Tenderness - Extremities Exam Extremities exam: Positive for: full ROM, pedal edema (+2 bilaterally). Negative for: calf tenderness - Neurological Exam Neurological exam: Alert, CN II-XII Intact, Oriented x3 - Psychiatric Exam Psychiatric exam: Normal Affect, Normal Mood - Skin Skin Exam: Dry, Warm Results - Vital Signs Recent Vital Signs: Last Vital Signs Temp 98.3 F 11/23/17 17:00 Pulse 80 11/23/17 17:36 Resp 20 11/23/17 17:36 BP 152/76 H 11/23/17 17:00 Pulse Ox 98 11/23/17 17:36 - Labs Result Diagrams: 11/23/17 08:33 11/23/17 08:33 Labs: Laboratory Results - last 24 hr 11/23/17 11/23/17 11/23/17 08:33 08:33 08:33 WBC 5.5 D RBC 3.17 L Hgb 8.6 L Hct 26.3 L MCV 82.9 MCH 27.2 MCHC 32.8 L RDW 15.4 H Plt Count 81 L D MPV 7.8 Neut % (Auto) 78.4 H Lymph % (Auto) 10.7 L Walsh % (Auto) 6.6 Eos % (Auto) 3.9 Baso % (Auto) 0.4 Neut # 4.3 Lymph # 0.6 L Walsh # 0.4 Eos # 0.2 Baso # 0.0 PT INR APTT pO2 VBG pH VBG pCO2 VBG HCO3 VBG Total CO2 VBG O2 Sat (Calc) VBG Base Excess VBG Potassium Glucose Lactate FiO2 Sodium 140 Potassium 3.9 Chloride 106 Carbon Dioxide 25 Anion Gap 13 BUN 13 Creatinine 1.0 Est GFR ( Amer) > 60 Est GFR (Non-Af Amer) > 60 POC Glucose (mg/dL) Random Glucose 203 H Calcium 8.4 Total Bilirubin 1.5 H AST 54 ALT 50 Alkaline Phosphatase 87 Ammonia 44 Total Protein 6.6 Albumin 2.8 L Globulin 3.8 Albumin/Globulin Ratio 0.7 L Amylase Lipase 500 H Venous Blood Potassium 11/23/17 11/23/17 11/23/17 12:00 16:40 16:43 WBC RBC Hgb Hct MCV MCH MCHC RDW Plt Count MPV Neut % (Auto) Lymph % (Auto) Walsh % (Auto) Eos % (Auto) Baso % (Auto) Neut # Lymph # Walsh # Eos # Baso # PT INR APTT pO2 84 H VBG pH 7.50 H VBG pCO2 35 L VBG HCO3 28.0 VBG Total CO2 28.4 H VBG O2 Sat (Calc) 99.1 H VBG Base Excess 4.0 H VBG Potassium 3.6 Glucose 134 H Lactate 1.3 FiO2 21.0 Sodium 139.0 Potassium Chloride 109.0 H Carbon Dioxide Anion Gap BUN Creatinine Est GFR ( Amer) Est GFR (Non-Af Amer) POC Glucose (mg/dL) 116 H Random Glucose Calcium Total Bilirubin AST ALT Alkaline Phosphatase Ammonia Total Protein Albumin Globulin Albumin/Globulin Ratio Amylase 341 H Lipase Venous Blood Potassium 3.6 11/23/17 16:43 WBC RBC Hgb Hct MCV MCH MCHC RDW Plt Count MPV Neut % (Auto) Lymph % (Auto) Walsh % (Auto) Eos % (Auto) Baso % (Auto) Neut # Lymph # Walsh # Eos # Baso # PT 13.4 H INR 1.2 APTT 27.9 pO2 VBG pH VBG pCO2 VBG HCO3 VBG Total CO2 VBG O2 Sat (Calc) VBG Base Excess VBG Potassium Glucose Lactate FiO2 Sodium Potassium Chloride Carbon Dioxide Anion Gap BUN Creatinine Est GFR ( Amer) Est GFR (Non-Af Amer) POC Glucose (mg/dL) Random Glucose Calcium Total Bilirubin AST ALT Alkaline Phosphatase Ammonia Total Protein Albumin Globulin Albumin/Globulin Ratio Amylase Lipase Venous Blood Potassium Assessment & Plan - Assessment and Plan (Free Text) Assessment: 72 yr old M admitted for pancreatitis with PMHx of NIDDM Type 2, HTN, Hep C, liver cirrhosis with ascites (last paracentesis was 09/2017), diabetic neuropathy, major depressive disorder, anxiety, Etoh abuse, cocaine and heroine abuse. -Admit to med/surg -IVF, Zofran IV PRN for nausea/vomiting, PPI IV, liquid diet -f/u amylase, lipase, BMP, lipid panel -GI on consult: will follow recommendations -f/u urine drug screen -hypoglycemia protocol in place -SCD's for DVT prophylaxis - Date & Time Date: 11/23/17 Time: 15:30
[2017-11-23] MEDS: Sodium Chloride 0.9% 1,000 ML IV SCH (19:57)
--- NOTE | 2017-11-23 20:20 | CP.PCM.CON ---
History of Present Illness - History of Present Illness History of Present Illness: 72 yo male with past h/o pancreatitis and regular Etoh use admitted with abdominal pain and nausea. Also has HCV and liver cirrhosis. Review of Systems - Constitutional Constitutional: absent: Chills - EENT Eyes: absent: Blurred Vision Ears: absent: Decreased Hearing Nose/Mouth/Throat: absent: Epistaxis - Cardiovascular Cardiovascular: absent: Chest Pain - Respiratory Respiratory: absent: Cough Past Patient History - Past Medical History & Family History Past Medical History?: Yes - Past Social History Smoking Status: Former Smoker - CARDIAC Hx Hypertension: Yes - PULMONARY Hx Respiratory Disorders: No - NEUROLOGICAL Hx Neurological Disorder: Yes Other/Comment: Diabetic Neuropathy left leg - HEENT Hx HEENT Problems: No - RENAL Hx Chronic Kidney Disease: No - ENDOCRINE/METABOLIC Hx Diabetes Mellitus Type 2: Yes - HEMATOLOGICAL/ONCOLOGICAL Hx Hepatitis C: Yes - INTEGUMENTARY Hx Dermatological Problems: No - MUSCULOSKELETAL/RHEUMATOLOGICAL Hx Falls: No - GASTROINTESTINAL Other/Comment: liver cirrhosis - GENITOURINARY/GYNECOLOGICAL Hx Genitourinary Disorders: No - PSYCHIATRIC Hx Anxiety: Yes Hx Depression: Yes - SURGICAL HISTORY Hx Surgeries: Yes (hernia repair through umbilicus) - ANESTHESIA Hx Anesthesia: Yes Hx Anesthesia Reactions: No Meds Allergies/Adverse Reactions: Allergies Allergy/AdvReac Type Severity Reaction Status Date / Time No Known Allergies Allergy Verified 11/23/17 07:15 - Medications Medications: Current Medications Dextrose (Dextrose 50% Inj) 0 ml IV STAT PRN; Protocol PRN Reason: Hypoglycemia Protocol Dextrose (Glutose 15) 0 gm PO ONCE PRN; Protocol PRN Reason: Hypoglycemia Protocol Escitalopram Oxalate (Lexapro) 10 mg PO DAILY [facility] Gabapentin (Neurontin) 300 mg PO TID [facility] Last Admin: 11/23/17 18:50 Dose: 300 mg Glucagon (Glucagen Diagnostic Kit) 0 mg IM STAT PRN; Protocol PRN Reason: Hypoglycemia Protocol Sodium Chloride (Sodium Chloride 0.9%) 1,000 mls @ 150 mls/hr IV .Q6H40M [facility] Stop: 11/24/17 09:00 Last Admin: 11/23/17 19:57 Dose: 150 mls/hr Insulin Human Regular (Humulin R) 0 units SC ACHS [facility] PRN Reason: Protocol Last Admin: 11/23/17 17:13 Dose: Not Given Lisinopril (Zestril) 20 mg PO DAILY [facility] Ondansetron HCl (Zofran Inj) 4 mg IVP Q6 PRN PRN Reason: Nausea/Vomiting Pantoprazole Sodium (Protonix Ec Tab) 40 mg PO DAILY [facility] Last Admin: 11/23/17 18:10 Dose: 40 mg Tramadol HCl (Ultram) 50 mg PO Q6 PRN PRN Reason: Pain, moderate (4-7) Last Admin: 11/23/17 16:37 Dose: 50 mg Physical Exam - Constitutional Appears: No Acute Distress - Head Exam Head Exam: ATRAUMATIC - Eye Exam Eye Exam: Normal appearance - ENT Exam ENT Exam: Mucous Membranes Moist - Neck Exam Neck exam: Positive for: Normal Inspection - Respiratory Exam Respiratory Exam: Clear to Auscultation Bilateral - Cardiovascular Exam Cardiovascular Exam: REGULAR RHYTHM, +S1, +S2 - GI/Abdominal Exam GI & Abdominal Exam: Normal Bowel Sounds, Soft, Tenderness Additional comments: midabdominal tenderness Results - Vital Signs Recent Vital Signs: Last Vital Signs Temp 98.3 F 11/23/17 17:00 Pulse 80 11/23/17 17:36 Resp 20 11/23/17 17:36 BP 152/76 H 11/23/17 17:00 Pulse Ox 98 11/23/17 17:36 - Labs Result Diagrams: 11/23/17 08:33 11/23/17 08:33 Labs: Laboratory Results - last 24 hr 11/23/17 11/23/17 11/23/17 08:33 08:33 08:33 WBC 5.5 D RBC 3.17 L Hgb 8.6 L Hct 26.3 L MCV 82.9 MCH 27.2 MCHC 32.8 L RDW 15.4 H Plt Count 81 L D MPV 7.8 Neut % (Auto) 78.4 H Lymph % (Auto) 10.7 L Titus % (Auto) 6.6 Eos % (Auto) 3.9 Baso % (Auto) 0.4 Neut # 4.3 Lymph # 0.6 L Titus # 0.4 Eos # 0.2 Baso # 0.0 PT INR APTT pO2 VBG pH VBG pCO2 VBG HCO3 VBG Total CO2 VBG O2 Sat (Calc) VBG Base Excess VBG Potassium Glucose Lactate FiO2 Sodium 140 Potassium 3.9 Chloride 106 Carbon Dioxide 25 Anion Gap 13 BUN 13 Creatinine 1.0 Est GFR ( Amer) > 60 Est GFR (Non-Af Amer) > 60 POC Glucose (mg/dL) Random Glucose 203 H Calcium 8.4 Total Bilirubin 1.5 H AST 54 ALT 50 Alkaline Phosphatase 87 Ammonia 44 Total Protein 6.6 Albumin 2.8 L Globulin 3.8 Albumin/Globulin Ratio 0.7 L Amylase Lipase 500 H Venous Blood Potassium 11/23/17 11/23/17 11/23/17 12:00 16:40 16:43 WBC RBC Hgb Hct MCV MCH MCHC RDW Plt Count MPV Neut % (Auto) Lymph % (Auto) Titus % (Auto) Eos % (Auto) Baso % (Auto) Neut # Lymph # Titus # Eos # Baso # PT INR APTT pO2 84 H VBG pH 7.50 H VBG pCO2 35 L VBG HCO3 28.0 VBG Total CO2 28.4 H VBG O2 Sat (Calc) 99.1 H VBG Base Excess 4.0 H VBG Potassium 3.6 Glucose 134 H Lactate 1.3 FiO2 21.0 Sodium 139.0 Potassium Chloride 109.0 H Carbon Dioxide Anion Gap BUN Creatinine Est GFR ( Amer) Est GFR (Non-Af Amer) POC Glucose (mg/dL) 116 H Random Glucose Calcium Total Bilirubin AST ALT Alkaline Phosphatase Ammonia Total Protein Albumin Globulin Albumin/Globulin Ratio Amylase 341 H Lipase Venous Blood Potassium 3.6 11/23/17 16:43 WBC RBC Hgb Hct MCV MCH MCHC RDW Plt Count MPV Neut % (Auto) Lymph % (Auto) Titus % (Auto) Eos % (Auto) Baso % (Auto) Neut # Lymph # Titus # Eos # Baso # PT 13.4 H INR 1.2 APTT 27.9 pO2 VBG pH VBG pCO2 VBG HCO3 VBG Total CO2 VBG O2 Sat (Calc) VBG Base Excess VBG Potassium Glucose Lactate FiO2 Sodium Potassium Chloride Carbon Dioxide Anion Gap BUN Creatinine Est GFR ( Amer) Est GFR (Non-Af Amer) POC Glucose (mg/dL) Random Glucose Calcium Total Bilirubin AST ALT Alkaline Phosphatase Ammonia Total Protein Albumin Globulin Albumin/Globulin Ratio Amylase Lipase Venous Blood Potassium - Imaging and Cardiology CT scan - abdomen Status: Report reviewed by me Assessment & Plan (1) Abdominal pain Assessment and Plan: Flare of pancreatitis vs suggestion of enteritis on CT. Continue low volume IV fluids. Will start IV Cipro Status: Acute
[2017-11-23] MEDS: Ciprofloxacin 400mg/200ml D5W 400 MG/200 ML BAG IVPB SCH (20:45)
[2017-11-24 06:38] LABS: AMYLASE 249 U/L (30-110); HDL CHOLESTEROL 52 MG/DL (30-70); LIPASE 152 U/L (23-300)
[2017-11-24 06:39] LABS: HEMOGLOBIN 8.4 g/dL (12.0-18.0); MEAN CELL VOLUME 82.4 fl (80.0-94.0); MEAN CORPUSCULAR HEMOGLOBIN 27.7 pg (27.0-31.0); MEAN CORPUSCULAR HGB CONC 33.6 g/dL (33.0-37.0); RBC 3.02 Mil/uL (4.40-5.90); RED CELL DISTRIBUTION WIDTH 15.4 % (11.5-14.5); WHITE BLOOD COUNT 2.9 K/uL (4.8-10.8)
[2017-11-24 06:48] LABS: LDL CHOLESTEROL 60 mg/dL (0-129)
[2017-11-24] MEDS: Insulin Regular 100 units/ml SC SCH ×5 (06:49→22:22)
[2017-11-24] MEDS: Sodium Chloride 0.9% 1,000 ML IV SCH ×4 (06:51→23:37)
--- NOTE | 2017-11-24 09:32 | CP.PCM.PN ---
Subjective - Date & Time of Evaluation Date of Evaluation: 11/24/17 Time of Evaluation: 09:29 - Subjective Subjective: Abdomen more distended today and patient reports midabdominal pain. Objective - Vital Signs/Intake and Output Vital Signs (last 24 hours): Temp Pulse Resp BP Pulse Ox 98.4 F 74 18 117/64 99 11/24/17 08:00 11/24/17 08:00 11/24/17 08:00 11/24/17 08:00 11/24/17 08:00 - Medications Medications: Current Medications Dextrose (Dextrose 50% Inj) 0 ml IV STAT PRN; Protocol PRN Reason: Hypoglycemia Protocol Dextrose (Glutose 15) 0 gm PO ONCE PRN; Protocol PRN Reason: Hypoglycemia Protocol Escitalopram Oxalate (Lexapro) 10 mg PO DAILY [facility] Furosemide (Lasix) 40 mg PO DAILY [facility] Gabapentin (Neurontin) 300 mg PO TID [facility] Last Admin: 11/23/17 18:50 Dose: 300 mg Glucagon (Glucagen Diagnostic Kit) 0 mg IM STAT PRN; Protocol PRN Reason: Hypoglycemia Protocol Ciprofloxacin (Cipro 400mg/200ml Dsw) 400 mg in 200 mls @ 200 mls/hr IVPB Q12 [facility] PRN Reason: Protocol Last Admin: 11/23/17 20:45 Dose: 200 mls/hr Insulin Human Regular (Humulin R) 0 units SC ACHS [facility] PRN Reason: Protocol Last Admin: 11/24/17 06:49 Dose: Not Given Ondansetron HCl (Zofran Inj) 4 mg IVP Q6 PRN PRN Reason: Nausea/Vomiting Pantoprazole Sodium (Protonix Ec Tab) 40 mg PO DAILY [facility] Last Admin: 11/23/17 18:10 Dose: 40 mg Spironolactone (Aldactone) 25 mg PO BID [facility] Tramadol HCl (Ultram) 50 mg PO Q6 PRN PRN Reason: Pain, moderate (4-7) Last Admin: 11/23/17 22:14 Dose: 50 mg - Labs Labs: 11/24/17 05:35 11/23/17 08:33 PT 13.4 Seconds (9.8-13.1) H 11/23/17 16:43 INR 1.2 (0.9-1.2) 11/23/17 16:43 APTT 27.9 Seconds (25.6-37.1) 11/23/17 16:43 - Head Exam Head Exam: ATRAUMATIC - Eye Exam Eye Exam: Normal appearance - ENT Exam ENT Exam: Mucous Membranes Moist - Respiratory Exam Respiratory Exam: Clear to Ausculation Bilateral - Cardiovascular Exam Cardiovascular Exam: REGULAR RHYTHM, +S1, +S2 - GI/Abdominal Exam GI & Abdominal Exam: Distended, Firm, Normal Bowel Sounds Assessment and Plan (1) Abdominal pain Assessment & Plan: Amylase better. Patient started yesterday on IV cipro. Abdomen more distended and patient has cirrhosis. Spironolactone and furosemide started. Will advance diet. Status: Acute
[2017-11-24] MEDS: Ciprofloxacin 400mg/200ml D5W 400 MG/200 ML BAG IVPB SCH ×2 (09:38→20:34)
--- NOTE | 2017-11-24 10:56 | RAD ---
PROCEDURE: CHEST RADIOGRAPH, 1 VIEW HISTORY: sob COMPARISON: Chest radiograph dated 10/16/2017. FINDINGS: LUNGS: Clear. PLEURA: No pneumothorax or pleural fluid seen. CARDIOVASCULAR: Atherosclerotic aortic calcifications. Cardiomediastinal silhouette within normal limits. OSSEOUS STRUCTURES: Unchanged. VISUALIZED UPPER ABDOMEN: Normal. OTHER FINDINGS: None. IMPRESSION: No active disease.
[2017-11-24 11:41] LABS: BARBITURATES, UR NEGATIVE (NEGATIVE); BENZODIAZEPINES, UR NEGATIVE (NEGATIVE); OPIATES, UR NEGATIVE (NEGATIVE); PHENCYCLIDINE, UR NEGATIVE (NEGATIVE)
--- NOTE | 2017-11-24 11:41 | CARD ---
APPROVED REPORT EKG Measurement Heart [id number] <Conclusion> Normal sinus rhythm Cannot rule out Anterior infarct, age undetermined Abnormal ECG
--- NOTE | 2017-11-24 12:15 | CP.PCM.HP ---
Review of Systems - Review of Systems All systems: reviewed and no additional remarkable complaints except Past Patient History - Past Medical History & Family History Past Medical History?: Yes - Past Social History Smoking Status: Former Smoker - CARDIAC Hx Hypertension: Yes - PULMONARY Hx Respiratory Disorders: No - NEUROLOGICAL Hx Neurological Disorder: Yes Other/Comment: Diabetic Neuropathy left leg - HEENT Hx HEENT Problems: No - RENAL Hx Chronic Kidney Disease: No - ENDOCRINE/METABOLIC Hx Diabetes Mellitus Type 2: Yes - HEMATOLOGICAL/ONCOLOGICAL Hx Hepatitis C: Yes - INTEGUMENTARY Hx Dermatological Problems: No - MUSCULOSKELETAL/RHEUMATOLOGICAL Hx Falls: No - GASTROINTESTINAL Other/Comment: liver cirrhosis - GENITOURINARY/GYNECOLOGICAL Hx Genitourinary Disorders: No - PSYCHIATRIC Hx Anxiety: Yes Hx Depression: Yes - SURGICAL HISTORY Hx Surgeries: Yes (hernia repair through umbilicus) - ANESTHESIA Hx Anesthesia: Yes Hx Anesthesia Reactions: No Meds Allergies/Adverse Reactions: Allergies Allergy/AdvReac Type Severity Reaction Status Date / Time No Known Allergies Allergy Verified 11/23/17 07:15 Results - Vital Signs Recent Vital Signs: Last Vital Signs Temp 98.4 F 11/24/17 08:00 Pulse 74 11/24/17 08:00 Resp 18 11/24/17 08:00 BP 120/69 11/24/17 10:44 Pulse Ox 99 11/24/17 08:00 - Labs Result Diagrams: 11/24/17 05:35 11/23/17 08:33 Labs: Laboratory Results - last 24 hr 11/23/17 11/23/17 11/23/17 12:00 16:40 16:43 WBC RBC Hgb Hct MCV MCH MCHC RDW Plt Count PT INR APTT pO2 84 H VBG pH 7.50 H VBG pCO2 35 L VBG HCO3 28.0 VBG Total CO2 28.4 H VBG O2 Sat (Calc) 99.1 H VBG Base Excess 4.0 H VBG Potassium 3.6 Sodium 139.0 Chloride 109.0 H Glucose 134 H Lactate 1.3 FiO2 21.0 POC Glucose (mg/dL) 116 H Triglycerides Cholesterol LDL Cholesterol Direct HDL Cholesterol Amylase 341 H Lipase Venous Blood Potassium 3.6 Urine Opiates Screen Urine Methadone Screen Ur Barbiturates Screen Ur Phencyclidine Scrn Ur Amphetamines Screen U Benzodiazepines Scrn U Oth Cocaine Metabols U Cannabinoids Screen 11/23/17 11/23/17 11/24/17 16:43 21:16 05:35 WBC 2.9 L RBC 3.02 L Hgb 8.4 L Hct 24.9 L MCV 82.4 MCH 27.7 MCHC 33.6 RDW 15.4 H Plt Count 77 L PT 13.4 H INR 1.2 APTT 27.9 pO2 VBG pH VBG pCO2 VBG HCO3 VBG Total CO2 VBG O2 Sat (Calc) VBG Base Excess VBG Potassium Sodium Chloride Glucose Lactate FiO2 POC Glucose (mg/dL) 215 H Triglycerides Cholesterol LDL Cholesterol Direct HDL Cholesterol Amylase Lipase Venous Blood Potassium Urine Opiates Screen Urine Methadone Screen Ur Barbiturates Screen Ur Phencyclidine Scrn Ur Amphetamines Screen U Benzodiazepines Scrn U Oth Cocaine Metabols U Cannabinoids Screen 11/24/17 11/24/17 11/24/17 05:35 05:36 11:13 WBC RBC Hgb Hct MCV MCH MCHC RDW Plt Count PT INR APTT pO2 VBG pH VBG pCO2 VBG HCO3 VBG Total CO2 VBG O2 Sat (Calc) VBG Base Excess VBG Potassium Sodium Chloride Glucose Lactate FiO2 POC Glucose (mg/dL) 107 Triglycerides 53 D Cholesterol 145 LDL Cholesterol Direct 60 HDL Cholesterol 52 Amylase 249 H D Lipase 152 Venous Blood Potassium Urine Opiates Screen Negative Urine Methadone Screen Negative Ur Barbiturates Screen Negative Ur Phencyclidine Scrn Negative Ur Amphetamines Screen Negative U Benzodiazepines Scrn Negative U Oth Cocaine Metabols Negative U Cannabinoids Screen Negative Assessment & Plan (1) Pancreatitis Status: Acute
[2017-11-24] MEDS: Pantoprazole 40 mg EC Tab PO SCH (16:50)
--- NOTE | 2017-11-24 18:03 | CP.PCM.PN ---
Subjective - Date & Time of Evaluation Date of Evaluation: 11/24/17 Time of Evaluation: 08:00 - Subjective Subjective: Patient seen and examined at bedside with attending-Dr. Galloway. Patient reports abdominal pain persists, tolerating minimal PO diet. No chest pain, SOB, weakness or dizziness. Objective - Vital Signs/Intake and Output Vital Signs (last 24 hours): Temp Pulse Resp BP Pulse Ox 98.1 F 71 20 128/71 99 11/24/17 16:28 11/24/17 16:28 11/24/17 16:28 11/24/17 16:28 11/24/17 16:28 - Medications Medications: Current Medications Acetaminophen (Tylenol 325mg Tab) 325 mg PO Q6 PRN PRN Reason: Pain, Mild (1-3) Dextrose (Dextrose 50% Inj) 0 ml IV STAT PRN; Protocol PRN Reason: Hypoglycemia Protocol Dextrose (Glutose 15) 0 gm PO ONCE PRN; Protocol PRN Reason: Hypoglycemia Protocol Escitalopram Oxalate (Lexapro) 10 mg PO DAILY [facility] Last Admin: 11/24/17 09:39 Dose: 10 mg Furosemide (Lasix) 40 mg PO DAILY [facility] Last Admin: 11/24/17 10:44 Dose: 40 mg Gabapentin (Neurontin) 300 mg PO TID [facility] Last Admin: 11/24/17 16:50 Dose: 300 mg Glucagon (Glucagen Diagnostic Kit) 0 mg IM STAT PRN; Protocol PRN Reason: Hypoglycemia Protocol Ciprofloxacin (Cipro 400mg/200ml Dsw) 400 mg in 200 mls @ 200 mls/hr IVPB Q12 [facility] PRN Reason: Protocol Last Admin: 11/24/17 09:38 Dose: 200 mls/hr Sodium Chloride (Sodium Chloride 0.9%) 1,000 mls @ 150 mls/hr IV .Q6H40M [facility] Stop: 11/25/17 15:13 Last Admin: 11/24/17 16:51 Dose: 150 mls/hr Insulin Human Regular (Humulin R) 0 units SC ACHS [facility] PRN Reason: Protocol Last Admin: 11/24/17 16:48 Dose: Not Given Ondansetron HCl (Zofran Inj) 4 mg IVP Q6 PRN PRN Reason: Nausea/Vomiting Pantoprazole Sodium (Protonix Ec Tab) 40 mg PO DAILY [facility] Last Admin: 01/24/18 16:50 Dose: 40 mg Spironolactone (Aldactone) 25 mg PO BID [facility] Last Admin: 11/24/17 16:50 Dose: 25 mg Tramadol HCl (Ultram) 50 mg PO Q6 PRN PRN Reason: Pain, moderate (4-7) Last Admin: 11/24/17 10:43 Dose: 50 mg - Labs Labs: 11/24/17 05:35 11/23/17 08:33 PT 13.4 Seconds (9.8-13.1) H 11/23/17 16:43 INR 1.2 (0.9-1.2) 11/23/17 16:43 APTT 27.9 Seconds (25.6-37.1) 11/23/17 16:43 - Constitutional Appears: No Acute Distress - Head Exam Head Exam: ATRAUMATIC, NORMOCEPHALIC - Eye Exam Eye Exam: EOMI - ENT Exam ENT Exam: Mucous Membranes Moist - Neck Exam Neck Exam: Full ROM - Respiratory Exam Respiratory Exam: NORMAL BREATHING PATTERN - Cardiovascular Exam Cardiovascular Exam: REGULAR RHYTHM, +S1, +S2 - GI/Abdominal Exam GI & Abdominal Exam: Distended, Tenderness (diffuse), Normal Bowel Sounds - Extremities Exam Extremities Exam: Full ROM. absent: Pedal Edema - Neurological Exam Neurological Exam: Alert, Awake, CN II-XII Intact, Oriented x3 - Psychiatric Exam Psychiatric exam: Normal Affect, Normal Mood - Skin Skin Exam: Dry, Warm Assessment and Plan - Assessment and Plan (Free Text) Assessment: 72 yr old M admitted for pancreatitis with PMHx of NIDDM Type 2, HTN, Hep C, liver cirrhosis with ascites (last paracentesis was 09/2017), diabetic neuropathy, major depressive disorder, anxiety, Etoh abuse, cocaine and heroine abuse. -IVF, Zofran IV PRN for nausea/vomiting, PPI IV, advance diet as tolerated -improved amylase, lipase wnl, BMP -GI on consult: will follow recommendations: spironolactone, lasix, IV Cipro -urine drug screen negative -hypoglycemia protocol in place -SCD's for DVT prophylaxis
[2017-11-25] MEDS: Sodium Chloride 0.9% 1,000 ML IV SCH ×2 (04:35→06:39)
[2017-11-25] MEDS: Insulin Regular 100 units/ml SC SCH ×3 (06:42→23:00)
[2017-11-25] MEDS: Pantoprazole 40 mg EC Tab PO SCH (08:55)
[2017-11-25] MEDS: Ciprofloxacin 400mg/200ml D5W 400 MG/200 ML BAG IVPB SCH ×2 (08:56→21:38)
--- NOTE | 2017-11-25 14:48 | CP.PCM.PN ---
Subjective - Date & Time of Evaluation Date of Evaluation: 11/25/17 Time of Evaluation: 09:20 - Subjective Subjective: Patient seen and examined at bedside with attending- Dr. Galloway. Reports increased appetite, abdominal pain persists but has mildly improved. Denies nausea, vomiting or chest pain. Objective - Vital Signs/Intake and Output Vital Signs (last 24 hours): Temp Pulse Resp BP Pulse Ox 98.3 F 79 20 128/75 97 11/25/17 07:55 11/25/17 07:55 11/25/17 07:55 11/25/17 08:55 11/25/17 07:55 - Medications Medications: Current Medications Acetaminophen (Tylenol 325mg Tab) 325 mg PO Q6 PRN PRN Reason: Pain, Mild (1-3) Dextrose (Dextrose 50% Inj) 0 ml IV STAT PRN; Protocol PRN Reason: Hypoglycemia Protocol Dextrose (Glutose 15) 0 gm PO ONCE PRN; Protocol PRN Reason: Hypoglycemia Protocol Escitalopram Oxalate (Lexapro) 10 mg PO DAILY [facility] Last Admin: 11/25/17 08:57 Dose: 10 mg Furosemide (Lasix) 40 mg PO DAILY [facility] Last Admin: 11/25/17 08:55 Dose: 40 mg Gabapentin (Neurontin) 300 mg PO TID [facility] Last Admin: 11/25/17 12:45 Dose: 300 mg Glucagon (Glucagen Diagnostic Kit) 0 mg IM STAT PRN; Protocol PRN Reason: Hypoglycemia Protocol Ciprofloxacin (Cipro 400mg/200ml Dsw) 400 mg in 200 mls @ 200 mls/hr IVPB Q12 [facility] PRN Reason: Protocol Last Admin: 11/25/17 08:56 Dose: 200 mls/hr Sodium Chloride (Sodium Chloride 0.9%) 1,000 mls @ 150 mls/hr IV .Q6H40M [facility] Stop: 11/25/17 15:13 Last Admin: 11/25/17 06:39 Dose: 150 mls/hr Insulin Human Regular (Humulin R) 0 units SC ACHS [facility] PRN Reason: Protocol Last Admin: 11/25/17 12:00 Dose: 2 unit Ondansetron HCl (Zofran Inj) 4 mg IVP Q6 PRN PRN Reason: Nausea/Vomiting Pantoprazole Sodium (Protonix Ec Tab) 40 mg PO DAILY [facility] Last Admin: 11/25/17 08:55 Dose: 40 mg Spironolactone (Aldactone) 25 mg PO BID [facility] Last Admin: 11/25/17 08:56 Dose: 25 mg Tramadol HCl (Ultram) 50 mg PO Q6 PRN PRN Reason: Pain, moderate (4-7) Last Admin: 11/24/17 10:43 Dose: 50 mg - Labs Labs: 11/24/17 05:35 11/23/17 08:33 PT 13.4 Seconds (9.8-13.1) H 11/23/17 16:43 INR 1.2 (0.9-1.2) 11/23/17 16:43 APTT 27.9 Seconds (25.6-37.1) 11/23/17 16:43 - Constitutional Appears: No Acute Distress - Head Exam Head Exam: ATRAUMATIC, NORMOCEPHALIC - Eye Exam Eye Exam: EOMI - ENT Exam ENT Exam: Mucous Membranes Moist - Respiratory Exam Respiratory Exam: NORMAL BREATHING PATTERN - Cardiovascular Exam Cardiovascular Exam: REGULAR RHYTHM, +S1, +S2 - GI/Abdominal Exam GI & Abdominal Exam: Distended, Tenderness (moderate tenderness on palpation), Normal Bowel Sounds - Extremities Exam Extremities Exam: Full ROM. absent: Pedal Edema - Neurological Exam Neurological Exam: Alert, Awake, CN II-XII Intact, Oriented x3 - Psychiatric Exam Psychiatric exam: Normal Affect, Normal Mood - Skin Skin Exam: Dry, Warm Assessment and Plan - Assessment and Plan (Free Text) Assessment: 72 yr old M admitted for pancreatitis with PMHx of NIDDM Type 2, HTN, Hep C, liver cirrhosis with ascites (last paracentesis was 09/2017), diabetic neuropathy, major depressive disorder, anxiety, Etoh abuse, cocaine and heroine abuse. -PT/OT -mild improvement, diet advanced as tolerated -IVF, Zofran IV PRN for nausea/vomiting, PPI IV -GI on consult: will follow recommendations: spironolactone, lasix, IV Cipro -urine drug screen negative -hypoglycemia protocol in place -SCD's for DVT prophylaxis
[2017-11-26 06:21] LABS: BASO % 0.3 % (0.0-2.0); EOS # 0.2 K/uL (0.0-0.7); EOS % 4.2 % (0.0-4.0); HEMOGLOBIN 8.7 g/dL (12.0-18.0); LYMPH # 0.5 K/uL (1.0-4.3); LYMPH % 12.2 % (20.0-40.0); MEAN CELL VOLUME 82.6 fl (80.0-94.0); MEAN CORPUSCULAR HEMOGLOBIN 27.1 pg (27.0-31.0); MEAN CORPUSCULAR HGB CONC 32.8 g/dL (33.0-37.0); MEAN PLATELET VOLUME 7.7 fl (7.2-11.7); MONO # 0.4 K/uL (0.0-0.8); MONO % 8.8 % (0.0-10.0); NEUT # 3.3 K/uL (1.8-7.0); NEUT % 74.5 % (50.0-75.0); NRBC % 0.1 % (0.0-0.0); RBC 3.22 Mil/uL (4.40-5.90); RED CELL DISTRIBUTION WIDTH 15.4 % (11.5-14.5); WHITE BLOOD COUNT 4.5 K/uL (4.8-10.8)
[2017-11-26 06:40] LABS: ALB/GLOB RATIO 0.7 (1.0-2.1); ALBUMIN 2.6 g/dL (3.5-5.0); ALT/SGPT 46 U/L (21-72); AST/SGOT 34 U/L (17-59); BLOOD UREA NITROGEN 10 mg/dl (9-20); CALCIUM 7.8 mg/dL (8.4-10.2); GFR AFRICAN-AMERICAN > 60; GFR NON-AFRICAN AMERICAN 59
[2017-11-26] MEDS: Insulin Regular 100 units/ml SC SCH (07:30)
[2017-11-26] MEDS: Ciprofloxacin 400mg/200ml D5W 400 MG/200 ML BAG IVPB SCH (08:24)
[2017-11-26] MEDS: Pantoprazole 40 mg EC Tab PO SCH (08:24)
[2017-11-26 08:52] VITALS: RESP 20
[2017-11-26] MEDS ORDERED: Insulin Regular 100 units/ml SC SCH (11:10)
[2017-11-26] MEDS ORDERED: Lidocaine 1% Inj (20ml) ONE (13:42)
--- NOTE | 2017-11-26 14:17 | PCM.SURG1 ---
Surgeon's Initial Post Op Note - Surgeon's Notes Surgeon: Eloy Marroquin MD Manifold Operator: NONE Type of Anesthesia: Local Pre-Operative Diagnosis: Ascites, abdominal pain Operative Findings: US showed a small amount of ascites Post-Operative Diagnosis: Ascites, abdominal pain Operation Performed: US guided paracentesis. Specimen/Specimens Removed: 2 liters of straw colored fluid Estimated Blood Loss: EBL {In ML}: 0 Blood Products Given: N/A Drains Used: No Drains Post-Op Condition: Fair Date of Surgery/Procedure: 11/26/17 Time of Surgery/Procedure: 14:15
[2017-11-26 14:50] VITALS: BP 102/55; PULSE 67; TEMP 98.1; O2SAT 98
--- NOTE | 2017-11-26 14:53 | CP.PCM.DIS ---
Provider - Provider Date of Admission: 11/23/17 11:54 Attending physician: Alek Galloway MD Consults: Dr. LopezGI, Dr. Allred-IR Time Spent in preparation of Discharge (in minutes): 30 Diagnosis - Discharge Diagnosis (1) Abdominal pain Status: Acute Priority: Low (2) Ascites Status: Acute Priority: Low (3) Liver cirrhosis Status: Chronic Priority: Low Hospital Course - Lab Results Lab Results: Most Recent Lab Values WBC 4.5 K/uL (4.8-10.8) L D 11/26/17 05:35 RBC 3.22 Mil/uL (4.40-5.90) L 11/26/17 05:35 Hgb 8.7 g/dL (12.0-18.0) L 11/26/17 05:35 Hct 26.6 % (35.0-51.0) L 11/26/17 05:35 MCV 82.6 fl (80.0-94.0) 11/26/17 05:35 MCH 27.1 pg (27.0-31.0) 11/26/17 05:35 MCHC 32.8 g/dL (33.0-37.0) L 11/26/17 05:35 RDW 15.4 % (11.5-14.5) H 11/26/17 05:35 Plt Count 78 K/uL (130-400) L 11/26/17 05:35 MPV 7.7 fl (7.2-11.7) 11/26/17 05:35 Neut % (Auto) 74.5 % (50.0-75.0) 11/26/17 05:35 Lymph % (Auto) 12.2 % (20.0-40.0) L 11/26/17 05:35 Story % (Auto) 8.8 % (0.0-10.0) 11/26/17 05:35 Eos % (Auto) 4.2 % (0.0-4.0) H 11/26/17 05:35 Baso % (Auto) 0.3 % (0.0-2.0) 11/26/17 05:35 Neut # 3.3 K/uL (1.8-7.0) 11/26/17 05:35 Lymph # 0.5 K/uL (1.0-4.3) L 11/26/17 05:35 Story # 0.4 K/uL (0.0-0.8) 11/26/17 05:35 Eos # 0.2 K/uL (0.0-0.7) 11/26/17 05:35 Baso # 0.0 K/uL (0.0-0.2) 11/26/17 05:35 PT 13.4 Seconds (9.8-13.1) H 11/23/17 16:43 INR 1.2 (0.9-1.2) 11/23/17 16:43 APTT 27.9 Seconds (25.6-37.1) 11/23/17 16:43 pO2 84 mm/Hg (30-55) H 11/23/17 12:00 VBG pH 7.50 (7.32-7.43) H 11/23/17 12:00 VBG pCO2 35 mmHg (40-60) L 11/23/17 12:00 VBG HCO3 28.0 mmol/L 11/23/17 12:00 VBG Total CO2 28.4 mmol/L (22-28) H 11/23/17 12:00 VBG O2 Sat (Calc) 99.1 % (40-65) H 11/23/17 12:00 VBG Base Excess 4.0 mmol/L (0.0-2.0) H 11/23/17 12:00 VBG Potassium 3.6 mmol/L (3.6-5.2) 11/23/17 12:00 Sodium 139.0 mmol/L (132-148) 11/23/17 12:00 Chloride 109.0 mmol/L (98-107) H 11/23/17 12:00 Glucose 134 mg/dL (75-110) H 11/23/17 12:00 Lactate 1.3 mmol/L (0.7-2.1) 11/23/17 12:00 FiO2 21.0 % 11/23/17 12:00 Sodium 137 mmol/l (132-148) 11/26/17 05:35 Potassium 3.7 MMOL/L (3.6-5.0) 11/26/17 05:35 Chloride 102 mmol/L (98-107) 11/26/17 05:35 Carbon Dioxide 26 mmol/L (22-30) 11/26/17 05:35 Anion Gap 13 (10-20) 11/26/17 05:35 BUN 10 mg/dl (9-20) 11/26/17 05:35 Creatinine 1.2 mg/dl (0.8-1.5) 11/26/17 05:35 Est GFR ( Amer) > 60 11/26/17 05:35 Est GFR (Non-Af Amer) 59 11/26/17 05:35 POC Glucose (mg/dL) 432 mg/dL (65-110) H* 11/26/17 10:55 Random Glucose 166 mg/dL (75-110) H 11/26/17 05:35 Calcium 7.8 mg/dL (8.4-10.2) L 11/26/17 05:35 Total Bilirubin 1.5 mg/dl (0.2-1.3) H 11/26/17 05:35 AST 34 U/L (17-59) 11/26/17 05:35 ALT 46 U/L (21-72) 11/26/17 05:35 Alkaline Phosphatase 74 U/L (38-126) 11/26/17 05:35 Ammonia 44 umo/L (16-60) 11/23/17 08:33 Total Protein 6.1 G/DL (6.3-8.2) L 11/26/17 05:35 Albumin 2.6 g/dL (3.5-5.0) L 11/26/17 05:35 Globulin 3.5 gm/dL (2.2-3.9) 11/26/17 05:35 Albumin/Globulin Ratio 0.7 (1.0-2.1) L 11/26/17 05:35 Triglycerides 53 mg/DL (0-149) D 11/24/17 05:35 Cholesterol 145 mg/dL (0-199) 11/24/17 05:35 LDL Cholesterol Direct 60 mg/dL (0-129) 11/24/17 05:35 HDL Cholesterol 52 MG/DL (30-70) 11/24/17 05:35 Amylase 249 U/L (30-110) H D 11/24/17 05:35 Lipase 152 U/L (23-300) 11/24/17 05:35 Venous Blood Potassium 3.6 mmol/L (3.6-5.2) 11/23/17 12:00 Urine Opiates Screen Negative (NEGATIVE) 11/24/17 11:13 Urine Methadone Screen Negative (NEGATIVE) 11/24/17 11:13 Ur Barbiturates Screen Negative (NEGATIVE) 11/24/17 11:13 Ur Phencyclidine Scrn Negative (NEGATIVE) 11/24/17 11:13 Ur Amphetamines Screen Negative (NEGATIVE) 11/24/17 11:13 U Benzodiazepines Scrn Negative (NEGATIVE) 11/24/17 11:13 U Oth Cocaine Metabols Negative (NEGATIVE) 11/24/17 11:13 U Cannabinoids Screen Negative (NEGATIVE) 11/24/17 11:13 - Hospital Course Hospital Course: 72 yr old M admitted for pancreatitis with abdominal pain and ascites. Patient improved s/p treatment with IV fluids, IV antibiotics and IR paracentesis-2L removed. Patient is tolerating PO diet, ambulating without difficulty. Patient is medically stable for discharge with instructions to follow up with Dr. Galloway within 1 week, follow up with GI-Dr. Celis within 1 week, take medications as prescribed. - Date & Time of H&P Date of H&P: 11/23/17 Time of H&P: 15:30 Discharge Exam - Head Exam Head Exam: ATRAUMATIC, NORMOCEPHALIC - Eye Exam Eye Exam: EOMI - ENT Exam ENT Exam: Mucous Membranes Moist - Neck Exam Neck exam: Full Rom - Respiratory Exam Respiratory Exam: NORMAL BREATHING PATTERN - Cardiovascular Exam Cardiovascular Exam: REGULAR RHYTHM, +S1, +S2 - GI/Abdominal Exam GI & Abdominal Exam: Normal Bowel Sounds, Soft - Extremities Exam Extremities exam: full ROM - Neurological Exam Neurological exam: Alert, CN II-XII Intact, Oriented x3 - Psychiatric Exam Psychiatric exam: Normal Affect, Normal Mood - Skin Skin Exam: Dry, Normal Color, Warm Discharge Plan - Discharge Medications Prescriptions: Ciprofloxacin [Cipro] 500 mg PO BID #10 tab Furosemide [Lasix] 40 mg PO DAILY #15 tab Spironolactone [Aldactone] 25 mg PO BID #30 tab - Follow Up Plan Condition: FAIR Disposition: HOME/ ROUTINE Patient education suggested?: Yes Instructions: Cirrhosis (DC), Ascites (DC) Additional Instructions: -Follow up with Dr. Galloway within 1 week -Follow up with GI-Dr. Celis within 1 week -Take medications as prescribed Referrals: Alek Galloway MD [Staff Provider] - Tyler Celis MD [Staff Provider] - Clinical Quality Measures - Date & Time of Discharge Summary Date of Discharge Summary: 11/26/17 Time of Discharge Summary: 14:59
--- NOTE | 2017-11-29 14:34 | US ---
Date of Procedure: 11/26/2017 PROCEDURE: Ultrasound-guided paracentesis, CPT 68654 Medications: 7 cc 1% Lidocaine HISTORY: Ascites, abdominal pain, TECHNIQUE: Following informed consent , the patient was placed supine on the stretcher and the site was marked. A limited abdominal ultrasound was performed that showed a large amount of intra-abdominal fluid. Procedural time out was called and the Pt's abdomen was marked and prepped and draped in the usual sterile fashion. Ultrasound-guided large volume paracentesis performed. A total of 2 liters of straw colored fluid was removed without complication. IMPRESSION: Ultrasound-guided large volume paracentesis.
== END 2017-11-26 17:17 | disposition home or self-care (01) | DRG 432 ==
LOC: H.ER 07:04 → H.ERHOLD 11:54 → H.MEDSURG1 17:05
PROVIDERS: ADMIT Internal Medicine; ATTEND Internal Medicine
PROC: 0W9G3ZZ Drainage of Peritoneal Cavity, Percutaneous Approach (ICD-10-PCS; principal; 2017-11-26)
DX: K70.31 Alcoholic cirrhosis of liver with ascites (principal); K85.90 Acute pancreatitis without necrosis or infection, unspecified; E11.40 Type 2 diabetes mellitus with diabetic neuropathy, unspecified; R16.1 Splenomegaly, not elsewhere classified; I10 Essential (primary) hypertension; K52.9 Noninfective gastroenteritis and colitis, unspecified; K80.20 Calculus of gallbladder without cholecystitis without obstruction; Z79.899 Other long term (current) drug therapy; Z82.49 Family history of ischemic heart disease and other diseases of the circulatory system; Z87.891 Personal history of nicotine dependence; B19.20 Unspecified viral hepatitis C without hepatic coma; F10.10 Alcohol abuse, uncomplicated; F32.9 Major depressive disorder, single episode, unspecified; F41.9 Anxiety disorder, unspecified; Z79.84 Long term (current) use of oral hypoglycemic drugs; F14.10 Cocaine abuse, uncomplicated; F11.10 Opioid abuse, uncomplicated

== ENCOUNTER 2017-12-22 13:39 | Inpatient (IN) | payer MEDICARE ==
--- NOTE | 2017-12-22 14:32 | ED PDOC ---
HPI: SOB/CHF/COPD Chief Complaint (Provider): SOB History Per: Patient History/Exam Limitations: no limitations Onset/Duration Of Symptoms: Days (3) Current Symptoms Are (Timing): Constant Associated Symptoms: Ankle/Leg Swelling, Dizziness, Light-headedness <Anjelica Veliz - Last Filed: 12/22/17 18:00> <Rebel Salazar - Last Filed: 12/26/17 21:36> Time Seen by Provider: 12/22/17 14:27 Chief Complaint (Nursing): Dizziness/Lightheaded Additional Complaint(s): 72 yo ,m, PMhx/o DM , HTN, Hep C, Liver cirrhosis, major depressive disorder, anxiety, Etoh abuse, cocaine and heroine abuse presents to Ed c/o SOB started 3 days ago, constant, associated with progressive abdominal swelling, dizziness, lightheadedness and non- bloody diarrhea started 3 days ago 5 episodes/day. Patient denies fever, nausea, vomiting, chest pain, cough, runny nose, dysuria. Patient reports had abd parecentesis 2 months ago. Patient reports taking only metformin and gabapentin as his medications. PMD: Dr Barakat ([place]) (Anjelica Veliz) Past Medical History - Medical History PMH: Anxiety, Depression, HTN Denies: Chronic Kidney Disease - Family History Family History: States: No Known Family Hx <Anjelica Veliz - Last Filed: 12/22/17 18:00> <Rebel Salazar - Last Filed: 12/26/17 21:36> Vital Signs: Last Vital Signs Temp 98.4 F 12/26/17 16:30 Pulse 75 12/26/17 16:30 Resp 20 12/26/17 16:30 BP 124/67 12/26/17 16:30 Pulse Ox 98 12/26/17 16:30 - Home Medications Home Medications: Ambulatory Orders Medication Instructions Recorded Gabapentin [Neurontin] 300 mg PO TID #90 cap 10/20/17 MetFORMIN [glucoPHAGE] 1,000 mg PO BID #60 tab 10/20/17 Lisinopril [Zestril] 10 mg PO BID 12/22/17 - Allergies Allergies/Adverse Reactions: Allergies Allergy/AdvReac Type Severity Reaction Status Date / Time No Known Allergies Allergy Verified 02/21/18 13:45 Curb-65 Severity Score - CURB-65 Severity Score Confusion: No Respiratory Rate greater than/equal to 30: Yes Systolic BP <90 or Diastolic BP less than/equal 60mmHg: No Age >64: Yes Curb-65 Score: 2 Percentage 30-day mortality: 6.8% <Anjelica Veliz - Last Filed: 12/22/17 18:00> Wells Criteria for PE - Wells Criteria for Pulmonary Embolism Clinical Signs and Symptoms of DVT: No P.E is #1 Diagnosis, or Equally Likely: No Heart Rate >100: No Immobilization at least 3 days;Surgery previous 4 weeks: No Previous, objectively diagnosed PE or DVT: No Hemoptysis: No Total Score: 0 <Anjelica Veliz - Last Filed: 12/22/17 18:00> Review of Systems Respiratory: Positive for: Shortness of Breath, Wheezing Gastrointestinal: Positive for: Diarrhea, Other (abdominal swelling and discomfort) Genitourinary Male: Negative for: Dysuria Skin: Negative for: Rash Neurological: Negative for: Weakness <Anjelica Veliz - Last Filed: 12/22/17 18:00> Physical Exam - Physical Exam Appears: Positive for: Non-toxic Head Exam: Positive for: ATRAUMATIC, NORMOCEPHALIC Skin: Positive for: Normal Color Eye Exam: Positive for: EOMI. Negative for: Nystagmus Neck: Positive for: Normal Cardiovascular/Chest: Positive for: Chest Non Tender. Negative for: Murmur Respiratory: Positive for: Crackles (b/l bibasal, and scattered wheezing bibasal. ), Wheezing, Other (supraclavicular retraction.) Gastrointestinal/Abdominal: Positive for: Bowel Sounds (normal), Distended, Asicites. Negative for: Tenderness, Guarding, Rebound Back: Positive for: Normal Inspection Extremity: Positive for: Pedal Edema (3+). Negative for: Tenderness, Calf Tenderness Neurologic/Psych: Positive for: Alert, Oriented <Anjelica Veliz - Last Filed: 12/22/17 18:00> - Laboratory Results Result Diagrams: 12/22/17 15:00 12/22/17 15:00 - ECG O2 Sat by Pulse Oximetry: 99 <Anjelica Veliz - Last Filed: 12/22/17 18:00> - Laboratory Results Result Diagrams: 12/26/17 05:20 12/26/17 05:20 <Rebel Salazar Y - Last Filed: 12/26/17 21:36> Medical Decision Making <Anjelica Veliz - Last Filed: 12/22/17 18:00> <Rebel Salazar - Last Filed: 12/26/17 21:36> Medical Decision Makin: 25 pm Initial impression Patient with hx/o liver cirrhosis, ascites with sob, abd swelling and leg swelling SOB secondary to Ascites Dizziness may be secondary chronic liver disease Differential Acute CHF, pulmonary Edema, COPD exacerbation, pleural effusion secondary to liver cirrhosis. Plan Labs: CBC, CMP, lipase, troponin, mg,phosp, , proBnp, ammonium level EKG, CXR CT Abd pelvis w/o contrast A cirrhotic liver is reiterated with extensive ascites in the abdomen and pelvis as well as likely injected perineum and increasing splenomegaly with a pattern blood flow not excluded. Additional details as discussed above. Duoneb, Lasix 40 mg IV (Anjelica Veliz) Patient examined. Patient with distended abdomen. Likely need paracentesis. Likely admission. Scribe Attestation: Documented by Jose De Leon, acting as a scribe for Rebel Salazar MD Provider Scribe Attestation: All medical record entries made by the Scribe were at my direction and personally dictated by me. I have reviewed the chart and agree that the record accurately reflects my personal performance of the history, physical exam, medical decision making, and the department course for this patient. I have also personally directed, reviewed, and agree with the discharge instructions and disposition. (Rebel Salazar) Disposition - Patient ED Disposition Is Patient to be Admitted: Yes - Disposition Disposition Time: 17:59 <Anjelica Veliz - Last Filed: 12/22/17 18:00> - Patient ED Disposition Is Patient to be Admitted: Yes Counseled Patient/Family Regarding: Studies Performed, Diagnosis <Rebel Saalzar Y - Last Filed: 12/26/17 21:36> - Clinical Impression Clinical Impression: Ascites, Liver cirrhosis - Disposition Condition: STABLE
[2017-12-22] MEDS ORDERED: Albuterol-Ipratrop 3 mg / 0.5 (3 ml) UD INH STA (14:39)
[2017-12-22] MEDS ORDERED: Albuterol-Ipratrop 3 mg / 0.5 (3 ml) UD ONE (14:54)
[2017-12-22 15:25] LABS: INR 1.2 (0.9-1.2); PARTIAL THROMBOPLASTIN TIME 28.6 Seconds (25.6-37.1); PROTHROMBIN TIME 12.9 Seconds (9.8-13.1)
[2017-12-22 15:26] LABS: BASO % 0.8 % (0.0-2.0); EOS # 0.2 K/uL (0.0-0.7); EOS % 4.2 % (0.0-4.0); HEMOGLOBIN 9.1 g/dL (12.0-18.0); LYMPH # 0.5 K/uL (1.0-4.3); LYMPH % 12.2 % (20.0-40.0); MEAN CELL VOLUME 82.2 fl (80.0-94.0); MEAN CORPUSCULAR HGB CONC 32.8 g/dL (33.0-37.0); MEAN PLATELET VOLUME 8.3 fl (7.2-11.7); MONO # 0.5 K/uL (0.0-0.8); MONO % 11.7 % (0.0-10.0); NEUT # 3.2 K/uL (1.8-7.0); NEUT % 71.1 % (50.0-75.0); NRBC % 0.1 % (0.0-0.0); RBC 3.36 Mil/uL (4.40-5.90); RED CELL DISTRIBUTION WIDTH 15.9 % (11.5-14.5); WHITE BLOOD COUNT 4.4 K/uL (4.8-10.8)
[2017-12-22 15:37] LABS: B-TYPE NATRIURETIC PEPTIDE 356 pg/ml (0-900)
[2017-12-22 15:38] LABS: ALB/GLOB RATIO 0.8 (1.0-2.1); ALBUMIN 3.1 g/dL (3.5-5.0); ALT/SGPT 46 U/L (21-72); AST/SGOT 57 U/L (17-59); BLOOD UREA NITROGEN 19 mg/dl (9-20); CALCIUM 7.9 mg/dL (8.4-10.2); GFR AFRICAN-AMERICAN > 60; GFR NON-AFRICAN AMERICAN > 60; LIPASE 196 U/L (23-300); MAGNESIUM 1.9 MG/DL (1.6-2.3)
--- NOTE | 2017-12-22 15:52 | RAD ---
HISTORY: SOB.Ascites COMPARISON: 11/23/2017 FINDINGS: LUNGS: No consolidation. PLEURA: No significant pleural effusion identified, no pneumothorax apparent. CARDIOVASCULAR: Mild cardiomegaly. Mild pulmonary venous congestion possible OSSEOUS STRUCTURES: Bilateral mild shoulder arthrosis. Cervical apophyseal joint arthrosis VISUALIZED UPPER ABDOMEN: Normal. OTHER FINDINGS: None. IMPRESSION: Mild cardiomegaly. Mild pulmonary venous congestion possible
[2017-12-22 17:10] LABS: BARBITURATES, UR NEGATIVE (NEGATIVE); BENZODIAZEPINES, UR NEGATIVE (NEGATIVE); OPIATES, UR NEGATIVE (NEGATIVE); PHENCYCLIDINE, UR NEGATIVE (NEGATIVE)
--- NOTE | 2017-12-22 17:11 | CT ---
PROCEDURE: CT Abdomen and Pelvis without intravenous contrast HISTORY: SOB,Ascites COMPARISON: Unenhanced abdomen and pelvis CT examination 11/23/2017. TECHNIQUE: Helical CT of the abdomen and pelvis was performed without oral or intravenous contrast as per referring physician request.. Contrast Dose: None Radiation dose: Total exam DLP = 970.46 mGy-cm. This CT exam was performed using one or more of the following dose reduction techniques: Automated exposure control, adjustment of the mA and/or kV according to patient size, and/or use of iterative reconstruction technique. FINDINGS: LOWER THORAX: Unremarkable. LIVER: A cirrhotic liver is again appreciate with infrequent punctate granulomata. Lack of intravenous contrast limits the interpretation enlarged mass is not identified in this unenhanced liver. GALLBLADDER AND BILE DUCTS: Cholelithiasis identified within mildly distended gallbladder. Hydropic thickening of the gallbladder wall is suspected as the etiology for mural thickening. Clinically correlate for potential cholecystitis though this is not favored. PANCREAS: Appears grossly nonfocal. SPLEEN: Splenomegaly appears increased 17.7 compared to 16 cm previously. ADRENALS: Unremarkable. No mass. KIDNEYS AND URETERS: No radiodense urolithiasis or definite obstructive uropathy. Streaky perinephric changes are again appreciated. VASCULATURE: Unremarkable. No aortic aneurysm. BOWEL: Stomach and bowel are poorly evaluated due to lack of oral contrast administration and relatively prominent ascites silhouetting of the bowel margins overall. No bowel obstruction pattern is appreciable. Clinically correlate further. Note is made of a small hiatal hernia versus thickening of the distal esophagus. APPENDIX: Not clearly identified. PERITONEUM: Mildly prominent ascites appreciated increased in the interval including mesenteric reaction. Pattern may be a function of the hepatofugal blood flow. Further clinical correlation is advised. LYMPH NODES: No gross lymph node enlargement. Evaluation compromised by lack images contrast and relative prominence of ascites. BLADDER: A distended, thin walled urinary bladder is appreciated. REPRODUCTIVE: Enlarged prostate gland again noted. BONES: No acute fracture. OTHER FINDINGS: None. IMPRESSION: A cirrhotic liver is reiterated with extensive ascites in the abdomen and pelvis as well as likely injected perineum and increasing splenomegaly with a pattern blood flow not excluded. Additional details as discussed above.
[2017-12-22] MEDS ORDERED: Morphine 4 MG/ML VIAL IVP ONE (17:22)
--- NOTE | 2017-12-22 18:44 | RAD ---
HISTORY: shortness of breath COMPARISON: Chest x-ray performed 12/22/17 at 1452 hours. TECHNIQUE: Chest PA and lateral FINDINGS: Examination limited by habitus and hypoinflation. LUNGS: Mild pulmonary venous congestion. Mild retrocardiac opacity may reflect atelectasis or infiltrate. Please note that chest x-ray has limited sensitivity for the detection of pulmonary masses. PLEURA: No significant pleural effusion identified. No definite pneumothorax . CARDIOVASCULAR: Heart size appears within normal limits. OSSEOUS STRUCTURES: No acute osseous abnormality identified. VISUALIZED UPPER ABDOMEN: Unremarkable. OTHER FINDINGS: None. IMPRESSION: Mild pulmonary venous congestion. Mild retrocardiac atelectasis/ infiltrate.
[2017-12-22] MEDS ORDERED: Morphine 4 MG/ML VIAL ONE (19:20)
--- NOTE | 2017-12-22 23:05 | US ---
EXAM: US Abdomen Limited, Right Upper Quadrant CLINICAL HISTORY: 72 years old, male; Pain; Abdominal pain; Epigastric; Additional info: Ruq R/O cholecystitis TECHNIQUE: Real-time ultrasound of the right upper quadrant with image documentation. COMPARISON: No relevant prior studies available. FINDINGS: Liver: The liver is shrunken and nodular in contour consistent with end-stage cirrhosis. There is a large amount of perihepatic free fluid. Gallbladder: Multiple calcified gallstones are present. The gallbladder is contracted and thick walled. The gallbladder wall measures 4 mm which could be secondary to nondistention or chronic hepatocellular disease. Negative Millard's sign. Common bile duct: The common bile duct measures 3 mm. No stones. No dilation. Pancreas: The pancreas is poorly-visualized due to overlying bowel gas. Spleen: Not imaged. Right kidney: Unremarkable measuring 9.9 centimeters. No stones. No solid mass. No hydronephrosis. IMPRESSION: End-stage cirrhosis and ascites. Contracted gallbladder with gallstones. Thick walled gallbladder probably secondary to nondistention or end-stage cirrhosis.
[2017-12-23] MEDS ORDERED: Morphine 4 MG/ML VIAL IVP ONE (01:08)
[2017-12-23] MEDS: Insulin Regular 100 units/ml SC SCH ×4 (09:11→23:52)
[2017-12-23] MEDS ORDERED: Lidocaine 1% Inj (20ml) ONE (13:10)
--- NOTE | 2017-12-23 13:51 | PCM.SURG1 ---
Surgeon's Initial Post Op Note - Surgeon's Notes Surgeon: Eloy Allred MD Agribusiness Professor: NONE Type of Anesthesia: Local Pre-Operative Diagnosis: ascites Operative Findings: US showed moderate ascites Post-Operative Diagnosis: ascites Operation Performed: US guieded paracentesis. Specimen/Specimens Removed: 3.8 liters of straw colored fluid Estimated Blood Loss: EBL {In ML}: 0 Blood Products Given: N/A Drains Used: No Drains Post-Op Condition: Fair Date of Surgery/Procedure: 12/23/17 Time of Surgery/Procedure: 13:50
[2017-12-23] MEDS ORDERED: Morphine 4 MG/ML VIAL IVP PRN (17:45)
--- NOTE | 2017-12-23 19:19 | CARD ---
APPROVED REPORT EKG Measurement Heart [id number] <Conclusion> Normal sinus rhythm Possible Anterior infarct, age undetermined Abnormal ECG
[2017-12-24 06:44] LABS: BASO % 0.7 % (0.0-2.0); EOS # 0.2 K/uL (0.0-0.7); EOS % 4.2 % (0.0-4.0); HEMOGLOBIN 8.8 g/dL (12.0-18.0); LYMPH # 0.7 K/uL (1.0-4.3); MEAN CELL VOLUME 79.5 fl (80.0-94.0); MEAN CORPUSCULAR HEMOGLOBIN 26.9 pg (27.0-31.0); MEAN CORPUSCULAR HGB CONC 33.8 g/dL (33.0-37.0); MEAN PLATELET VOLUME 8.2 fl (7.2-11.7); MONO # 0.5 K/uL (0.0-0.8); MONO % 10.6 % (0.0-10.0); NEUT # 3.1 K/uL (1.8-7.0); NEUT % 69.5 % (50.0-75.0); NRBC % 0.1 % (0.0-0.0); RBC 3.27 Mil/uL (4.40-5.90); RED CELL DISTRIBUTION WIDTH 15.4 % (11.5-14.5); WHITE BLOOD COUNT 4.5 K/uL (4.8-10.8)
[2017-12-24 06:57] LABS: ALB/GLOB RATIO 0.7 (1.0-2.1); ALBUMIN 2.5 g/dL (3.5-5.0); ALT/SGPT 40 U/L (21-72); AST/SGOT 39 U/L (17-59); BLOOD UREA NITROGEN 22 mg/dl (9-20); CALCIUM 7.8 mg/dL (8.4-10.2); GFR AFRICAN-AMERICAN > 60; GFR NON-AFRICAN AMERICAN 54
[2017-12-24] MEDS: Enoxaparin 40 mg Syringe SC SCH (09:03)
[2017-12-24] MEDS: Insulin Regular 100 units/ml SC SCH ×4 (09:04→23:25)
--- NOTE | 2017-12-24 11:49 | CP.PCM.PN ---
<King Gregg - Last Filed: 12/24/17 12:29> Subjective - Date & Time of Evaluation Date of Evaluation: 12/24/17 Time of Evaluation: 11:50 - Subjective Subjective: 72 y/o M with known PMhx of liver cirrhosis, seen at bedside today. Patient spiked a fever last night and this AM. He has no other complains after he requested to be DC yesterday afternoon and had to be convinced of staying in the hosp. Denies vomiting, nausea, diarrhea abd pain. S/P therapeutic Paracentesis Yesterday. Objective - Vital Signs/Intake and Output Vital Signs (last 24 hours): Temp Pulse Resp BP Pulse Ox 98.6 F 75 20 133/71 97 12/24/17 08:12 12/24/17 08:12 12/24/17 08:12 12/24/17 09:04 12/24/17 08:12 - Medications Medications: Current Medications Acetaminophen (Tylenol 325mg Tab) 650 mg PO Q4 PRN PRN Reason: Fever >100.4 F Last Admin: 12/24/17 00:36 Dose: 650 mg Enoxaparin Sodium (Lovenox) 40 mg SC DAILY [facility] PRN Reason: Protocol Last Admin: 12/24/17 09:03 Dose: 40 mg Furosemide (Lasix) 40 mg PO BID [facility] Last Admin: 12/24/17 09:04 Dose: 40 mg Ceftriaxone Sodium 1 gm/ (Sodium Chloride) 100 mls @ 100 mls/hr IVPB DAILY [facility] PRN Reason: Protocol Insulin Human Regular (Humulin R) 0 units SC ACCU-CHECK [facility] PRN Reason: Protocol Last Admin: 12/24/17 09:04 Dose: 2 u Morphine Sulfate (Morphine) 2 mg IVP Q4 PRN PRN Reason: Pain, moderate (4-7) Last Admin: 12/23/17 17:42 Dose: 2 mg Pantoprazole Sodium (Protonix Inj) 40 mg IVP DAILY [facility] Last Admin: 12/24/17 09:04 Dose: 40 mg Spironolactone (Aldactone) 100 mg PO DAILY [facility] Last Admin: 12/24/17 09:04 Dose: 100 mg - Labs Labs: 12/24/17 05:00 12/24/17 05:00 PT 12.9 Seconds (9.8-13.1) 12/22/17 15:00 INR 1.2 (0.9-1.2) 12/22/17 15:00 APTT 28.6 Seconds (25.6-37.1) 12/22/17 15:00 - Constitutional Appears: Non-toxic, Chronically Ill - Eye Exam Eye Exam: EOMI, PERRL - ENT Exam ENT Exam: Mucous Membranes Moist - Respiratory Exam Respiratory Exam: Clear to Ausculation Bilateral, NORMAL BREATHING PATTERN - Cardiovascular Exam Cardiovascular Exam: REGULAR RHYTHM, +S1, +S2. absent: Gallop - GI/Abdominal Exam GI & Abdominal Exam: Soft, Normal Bowel Sounds - Neurological Exam Neurological Exam: Alert, Awake, Oriented x3 - Psychiatric Exam Psychiatric exam: Normal Affect, Normal Mood - Skin Skin Exam: Normal Color, Warm Assessment and Plan - Assessment and Plan (Free Text) Assessment: 72 y/o M with Liver cirrhosis admitted for ascitis Ascitis Likely due to liver cirrhosis Noncompliant with home meds S/P Paracentesis Markedly improved from abd discomfort C/W Lasix and Aldactone Fever Acute, Unknown Started on Rocephin 2g IV daily F/U Cultures Monitor <Tyler Rico L - Last Filed: 12/26/17 12:15> Objective - Vital Signs/Intake and Output Vital Signs (last 24 hours): Temp Pulse Resp BP Pulse Ox 97.4 F L 80 20 139/75 98 12/26/17 08:20 12/26/17 08:20 12/26/17 08:20 12/26/17 08:34 12/26/17 08:20 - Medications Medications: Current Medications Acetaminophen (Tylenol 325mg Tab) 650 mg PO Q4 PRN PRN Reason: Fever >100.4 F Last Admin: 12/24/17 00:36 Dose: 650 mg Furosemide (Lasix) 40 mg PO DAILY [facility] Last Admin: 12/26/17 08:34 Dose: 40 mg Ceftriaxone Sodium 2 gm/ (Sodium Chloride) 100 mls @ 100 mls/hr IVPB DAILY [facility] PRN Reason: Protocol Last Admin: 12/26/17 08:43 Dose: 100 mls/hr Vancomycin HCl 500 mg/ Sodium (Chloride) 100 mls @ 100 mls/hr IVPB Q12 [facility] PRN Reason: Protocol Last Admin: 12/26/17 08:40 Dose: 100 mls/hr Ibuprofen (Motrin Tab) 400 mg PO Q6 PRN PRN Reason: Headache Last Admin: 12/25/17 20:40 Dose: 400 mg Insulin Human Regular (Humulin R) 0 units SC ACCU-CHECK [facility] PRN Reason: Protocol Last Admin: 12/26/17 08:35 Dose: 3 u Morphine Sulfate (Morphine) 2 mg IVP Q4 PRN PRN Reason: Pain, moderate (4-7) Last Admin: 12/23/17 17:42 Dose: 2 mg Pantoprazole Sodium (Protonix Inj) 40 mg IVP DAILY [facility] Last Admin: 12/26/17 08:36 Dose: 40 mg Spironolactone (Aldactone) 50 mg PO DAILY [facility] Last Admin: 12/26/17 08:35 Dose: 50 mg - Labs Labs: 12/26/17 05:20 12/26/17 05:20 PT 12.9 Seconds (9.8-13.1) 12/22/17 15:00 INR 1.2 (0.9-1.2) 12/22/17 15:00 APTT 28.6 Seconds (25.6-37.1) 12/22/17 15:00 Assessment and Plan (1) Ascites Status: Acute (2) Liver cirrhosis Status: Chronic (3) Major depressive disorder Status: Chronic (4) Cocaine abuse Status: Chronic - Assessment and Plan (Free Text) Plan: I was present during evlauation and discussed with Dr Gregg re plans of care and tx. Tyler Rico M.D.
[2017-12-24 14:11] VITALS: BMI 24.7
[2017-12-25 08:23] LABS: HEMOGLOBIN 9.4 g/dL (12.0-18.0); MEAN CELL VOLUME 80.2 fl (80.0-94.0); MEAN CORPUSCULAR HEMOGLOBIN 26.6 pg (27.0-31.0); MEAN CORPUSCULAR HGB CONC 33.1 g/dL (33.0-37.0); RBC 3.53 Mil/uL (4.40-5.90); RED CELL DISTRIBUTION WIDTH 15.6 % (11.5-14.5); WHITE BLOOD COUNT 4.6 K/uL (4.8-10.8)
[2017-12-25] MEDS: Insulin Regular 100 units/ml SC SCH ×4 (08:23→23:12)
[2017-12-25] MEDS: Enoxaparin 40 mg Syringe SC SCH (08:24)
[2017-12-25 08:50] LABS: BLOOD UREA NITROGEN 21 mg/dl (9-20); CALCIUM 7.9 mg/dL (8.4-10.2); GFR AFRICAN-AMERICAN > 60; GFR NON-AFRICAN AMERICAN 59
--- NOTE | 2017-12-25 15:58 | CP.PCM.HP ---
History of Present Illness - History of Present Illness History of Present Illness: This is a 72 y/o male with hx of Hep C alcoholism, liver cirrhosis, DM 2 anxiety , depression, cocaine and heroine use was admitted last night due to progressive worsening of abdominal distention. He noted sx to have started for few weeks and has gotten worst in the past few days. He noted increasing SOB and abd distension hence sought consult at the ER. He denies fever. Present on Admission - Present on Admission Any Indicators Present on Admission: No History of DVT/PE: No History of Uncontrolled Diabetes: No Urinary Catheter: No Decubitus Ulcer Present: No Review of Systems - Gastrointestinal Gastrointestinal: Abdominal Pain, Constipation Past Patient History - Past Medical History & Family History Past Medical History?: Yes - Past Social History Smoking Status: Never Smoked - CARDIAC Hx Hypertension: Yes - PULMONARY Hx Respiratory Disorders: No - NEUROLOGICAL Hx Neurological Disorder: Yes Other/Comment: Diabetic Neuropathy left leg - HEENT Hx HEENT Problems: No - RENAL Hx Chronic Kidney Disease: No - ENDOCRINE/METABOLIC Hx Diabetes Mellitus Type 2: Yes - HEMATOLOGICAL/ONCOLOGICAL Hx Cirrhosis: Yes Hx Hepatitis C: Yes - INTEGUMENTARY Hx Dermatological Problems: No - MUSCULOSKELETAL/RHEUMATOLOGICAL Hx Falls: No - GASTROINTESTINAL Other/Comment: liver cirrhosis - GENITOURINARY/GYNECOLOGICAL Hx Genitourinary Disorders: No - PSYCHIATRIC Hx Anxiety: Yes Hx Depression: Yes - SURGICAL HISTORY Hx Surgeries: Yes (hernia repair through umbilicus) - ANESTHESIA Hx Anesthesia: Yes Hx Anesthesia Reactions: No Meds Allergies/Adverse Reactions: Allergies Allergy/AdvReac Type Severity Reaction Status Date / Time No Known Allergies Allergy Verified 12/22/17 13:45 Physical Exam - Head Exam Head Exam: NORMAL INSPECTION - Eye Exam Eye Exam: Normal appearance - Respiratory Exam Respiratory Exam: Decreased Breath Sounds - Cardiovascular Exam Cardiovascular Exam: REGULAR RHYTHM - GI/Abdominal Exam GI & Abdominal Exam: Diminished Bowel Sounds, Distended - Neurological Exam Neurological exam: CN II-XII Intact, Oriented x3 - Psychiatric Exam Psychiatric exam: Normal Mood Results - Vital Signs Recent Vital Signs: Last Vital Signs Temp 98.2 F 12/25/17 08:22 Pulse 77 12/25/17 08:22 Resp 20 12/25/17 08:22 BP 124/63 12/25/17 08:23 Pulse Ox 97 12/25/17 08:22 - Labs Result Diagrams: 12/26/17 05:20 12/26/17 05:20 Labs: Laboratory Results - last 24 hr 12/24/17 12/24/17 12/25/17 11:02 21:23 05:23 WBC RBC Hgb Hct MCV MCH MCHC RDW Plt Count Sodium Potassium Chloride Carbon Dioxide Anion Gap BUN Creatinine Est GFR ( Amer) Est GFR (Non-Af Amer) POC Glucose (mg/dL) 277 H 229 H 181 H Random Glucose Calcium 12/25/17 12/25/17 12/25/17 07:47 07:47 10:58 WBC 4.6 L RBC 3.53 L Hgb 9.4 L Hct 28.3 L MCV 80.2 MCH 26.6 L MCHC 33.1 RDW 15.6 H Plt Count 85 L Sodium 138 Potassium 3.9 Chloride 103 Carbon Dioxide 26 Anion Gap 13 BUN 21 H Creatinine 1.2 Est GFR ( Amer) > 60 Est GFR (Non-Af Amer) 59 POC Glucose (mg/dL) 339 H Random Glucose 188 H Calcium 7.9 L Assessment & Plan (1) Ascites Status: Acute Priority: Low (2) Liver cirrhosis Status: Chronic Priority: Low (3) Major depressive disorder Status: Chronic (4) Cocaine abuse Status: Chronic - Assessment and Plan (Free Text) Plan: will keep NPO Arrange for paracentesis check labs.
--- NOTE | 2017-12-25 16:00 | CP.PCM.PN ---
Subjective - Date & Time of Evaluation Date of Evaluation: 12/25/17 Time of Evaluation: 15:59 - Subjective Subjective: Noted to have low grade fever and C and S showed gram positive cocci. Patient desires to go home He feels very weak after paracentesis where more than 3 liters of ascitic fluid was removed. Has no fever now. Objective - Vital Signs/Intake and Output Vital Signs (last 24 hours): Temp Pulse Resp BP Pulse Ox 98.2 F 77 20 124/63 97 12/25/17 08:22 12/25/17 08:22 12/25/17 08:22 12/25/17 08:23 12/25/17 08:22 - Medications Medications: Current Medications Acetaminophen (Tylenol 325mg Tab) 650 mg PO Q4 PRN PRN Reason: Fever >100.4 F Last Admin: 12/24/17 00:36 Dose: 650 mg Furosemide (Lasix) 40 mg PO DAILY [facility] Last Admin: 12/25/17 08:23 Dose: 40 mg Ceftriaxone Sodium 2 gm/ (Sodium Chloride) 100 mls @ 100 mls/hr IVPB DAILY [facility] PRN Reason: Protocol Last Admin: 12/25/17 08:24 Dose: 100 mls/hr Insulin Human Regular (Humulin R) 0 units SC ACCU-CHECK [facility] PRN Reason: Protocol Last Admin: 12/25/17 11:26 Dose: 6 u Morphine Sulfate (Morphine) 2 mg IVP Q4 PRN PRN Reason: Pain, moderate (4-7) Last Admin: 12/23/17 17:42 Dose: 2 mg Pantoprazole Sodium (Protonix Inj) 40 mg IVP DAILY [facility] Last Admin: 12/25/17 09:35 Dose: 40 mg Spironolactone (Aldactone) 50 mg PO DAILY [facility] Last Admin: 12/25/17 08:23 Dose: 50 mg - Labs Labs: 12/25/17 07:47 12/25/17 07:47 PT 12.9 Seconds (9.8-13.1) 12/22/17 15:00 INR 1.2 (0.9-1.2) 12/22/17 15:00 APTT 28.6 Seconds (25.6-37.1) 12/22/17 15:00 - Head Exam Head Exam: NORMAL INSPECTION - Eye Exam Eye Exam: Normal appearance - ENT Exam ENT Exam: Mucous Membranes Moist - Respiratory Exam Respiratory Exam: Clear to Ausculation Bilateral - Cardiovascular Exam Cardiovascular Exam: REGULAR RHYTHM - GI/Abdominal Exam GI & Abdominal Exam: Normal Bowel Sounds Assessment and Plan (1) Ascites Status: Acute (2) Liver cirrhosis Status: Chronic (3) Cocaine abuse Status: Chronic (4) Major depressive disorder Status: Chronic - Assessment and Plan (Free Text) Plan: Cont meds Cont tx ID follow up Cont iV antibiotics
[2017-12-26 07:14] LABS: HEMOGLOBIN 9.8 g/dL (12.0-18.0); MEAN CELL VOLUME 79.4 fl (80.0-94.0); MEAN CORPUSCULAR HEMOGLOBIN 26.9 pg (27.0-31.0); MEAN CORPUSCULAR HGB CONC 33.9 g/dL (33.0-37.0); RBC 3.66 Mil/uL (4.40-5.90); RED CELL DISTRIBUTION WIDTH 15.7 % (11.5-14.5); WHITE BLOOD COUNT 4.2 K/uL (4.8-10.8)
[2017-12-26 07:38] LABS: ALB/GLOB RATIO 0.7 (1.0-2.1); ALBUMIN 2.5 g/dL (3.5-5.0); ALT/SGPT 36 U/L (21-72); AST/SGOT 30 U/L (17-59); BLOOD UREA NITROGEN 23 mg/dl (9-20); CALCIUM 7.9 mg/dL (8.4-10.2); GFR AFRICAN-AMERICAN > 60; GFR NON-AFRICAN AMERICAN 54
[2017-12-26] MEDS: Insulin Regular 100 units/ml SC SCH ×4 (08:35→22:03)
--- NOTE | 2017-12-26 12:20 | CP.PCM.PN ---
Subjective - Date & Time of Evaluation Date of Evaluation: 12/26/17 Time of Evaluation: 12:19 - Subjective Subjective: Patient feels a lot better today Has no fever Has no chest pain or SOB. Objective - Vital Signs/Intake and Output Vital Signs (last 24 hours): Temp Pulse Resp BP Pulse Ox 97.4 F L 80 20 139/75 98 12/26/17 08:20 12/26/17 08:20 12/26/17 08:20 12/26/17 08:34 12/26/17 08:20 - Medications Medications: Current Medications Acetaminophen (Tylenol 325mg Tab) 650 mg PO Q4 PRN PRN Reason: Fever >100.4 F Last Admin: 12/24/17 00:36 Dose: 650 mg Furosemide (Lasix) 40 mg PO DAILY [facility] AT [facility] Last Admin: 12/26/17 08:34 Dose: 40 mg Ceftriaxone Sodium 2 gm/ (Sodium Chloride) 100 mls @ 100 mls/hr IVPB DAILY [facility] PRN Reason: Protocol Last Admin: 12/26/17 08:43 Dose: 100 mls/hr Vancomycin HCl 500 mg/ Sodium (Chloride) 100 mls @ 100 mls/hr IVPB Q12 [facility] PRN Reason: Protocol Last Admin: 12/26/17 08:40 Dose: 100 mls/hr Ibuprofen (Motrin Tab) 400 mg PO Q6 PRN PRN Reason: Headache Last Admin: 12/25/17 20:40 Dose: 400 mg Insulin Human Regular (Humulin R) 0 units SC ACCU-CHECK [facility] PRN Reason: Protocol Last Admin: 12/26/17 08:35 Dose: 3 u Morphine Sulfate (Morphine) 2 mg IVP Q4 PRN PRN Reason: Pain, moderate (4-7) Last Admin: 12/23/17 17:42 Dose: 2 mg Pantoprazole Sodium (Protonix Inj) 40 mg IVP DAILY [facility] B[facility]S [facility] Last Admin: 12/26/17 08:36 Dose: 40 mg Spironolactone (Aldactone) 50 mg PO DAILY [facility] 234 B[facility]S AT [facility] Last Admin: 12/26/17 08:35 Dose: 50 mg - Labs Labs: 12/26/17 05:20 12/26/17 05:20 PT 12.9 Seconds (9.8-13.1) 12/22/17 15:00 INR 1.2 (0.9-1.2) 12/22/17 15:00 APTT 28.6 Seconds (25.6-37.1) 12/22/17 15:00 - Head Exam Head Exam: NORMAL INSPECTION - Eye Exam Eye Exam: Normal appearance - ENT Exam ENT Exam: Mucous Membranes Moist - Respiratory Exam Respiratory Exam: Clear to Ausculation Bilateral - Cardiovascular Exam Cardiovascular Exam: REGULAR RHYTHM - GI/Abdominal Exam GI & Abdominal Exam: Normal Bowel Sounds - Neurological Exam Neurological Exam: Awake, Oriented x3 - Psychiatric Exam Psychiatric exam: Normal Mood Assessment and Plan (1) Ascites Status: Acute (2) Liver cirrhosis Status: Chronic (3) Cocaine abuse Status: Chronic (4) Major depressive disorder Status: Chronic - Assessment and Plan (Free Text) Plan: Cont meds Cont tx Cont IV antibiotics follow up with Dr Worley
[2017-12-27 01:02] VITALS: RESP 19; O2SAT 97
[2017-12-27] MEDS: Insulin Regular 100 units/ml SC SCH (08:17)
[2017-12-27 08:19] VITALS: BP 123/71
--- NOTE | 2017-12-27 08:42 | CON ---
DATE: INFECTIOUS DISEASE CONSULTATION HISTORY OF PRESENT ILLNESS: The patient is from [place], [place]. The patient is a 72-year-old male who came to the ER on 12/22/2017 because of swelling of both lower extremities, dizziness, lightheadedness and increasing abdominal girth. This is a 72-year-old male with past medical history of hypertension, hepatitis C, liver cirrhosis and depressive disorder. He also has a significant history of ethanol abuse, cocaine and heroin abuse. He came to the ER complaining of shortness of breath, which has started few days prior. He again as I stated before noted progressive abdominal swelling, dizziness and lightheadedness, also had diarrhea with 5 episodes per day. No nausea, vomiting or chest pain. Had recent abdominal paracentesis 2 months ago and his only medications are metformin and gabapentin. PMD is Dr. Barakat in [place]. The patient has recently undergone another paracentesis and is apparently dizzy from it. PHYSICAL EXAMINATION HEENT: Essentially within normal limits. NECK: Supple. LUNGS: Decreased breath sounds at bases with rales at both bases. There is some scattered wheezing bilaterally. ABDOMEN: Positive bowel sounds. Definite distended ascites, paracentesis and liver is enlarged. EXTREMITIES: Has 3+ pedal edema. LABORATORY DATA: Microbiology and reason I am seeing the patient for he has positive blood culture for gram-positive cocci in chains, which probably would be Strep or Enterococcus, but we will wait for the identification that we sent by the lab. WBC is 4.6, hemoglobin is 9.4 and platelet count is low as 85. INR is 1.2. Chemistries; creatinine is 1.2, GFR is 59. Blood sugars are elevated. Abdominal CT shows a cirrhotic liver with extensive ascites in the abdomen and pelvis as well a perineum and increasing splenomegaly Additional details are in the report. Chest x-ray mild pulmonary venous congestion, mild retrocardiac atelectasis and infiltrate. IMPRESSION: Gram-positive sepsis, ascites and liver cirrhosis and hepatitis C. At present time, he is on Rocephin and we will repeat blood cultures x2 days and we will add vancomycin to the treatment until the identification of the bacteria is noted. Matheus Worley MD MTDD
[2017-12-27 09:52] VITALS: PULSE 81; TEMP 98
--- NOTE | 2017-12-27 11:25 | CP.PCM.DIS ---
Provider - Provider Date of Admission: 12/24/17 11:37 Attending physician: Tyler Rico MD Time Spent in preparation of Discharge (in minutes): 30 Diagnosis - Discharge Diagnosis (1) Ascites Status: Acute Priority: Low (2) Liver cirrhosis Status: Chronic Priority: Low (3) Cocaine abuse Status: Chronic (4) Major depressive disorder Status: Chronic Hospital Course - Lab Results Lab Results: Micro Results 12/26/17 07:30 Blood Blood Culture - Preliminary NO GROWTH AFTER 24 HOURS 12/24/17 13:00 Blood S.aureus & Coag-Neg Staph PNA FISH - Preliminary 12/24/17 13:00 Blood Blood Culture - Preliminary Gram Positive Cocci 12/24/17 13:00 Blood Gram Stain - Final 12/24/17 02:15 Urine Urine Culture - Final No Growth (<1,000 CFU/ML) Most Recent Lab Values WBC 4.2 K/uL (4.8-10.8) L 12/26/17 05:20 RBC 3.66 Mil/uL (4.40-5.90) L 12/26/17 05:20 Hgb 9.8 g/dL (12.0-18.0) L 12/26/17 05:20 Hct 29.0 % (35.0-51.0) L 12/26/17 05:20 MCV 79.4 fl (80.0-94.0) L 12/26/17 05:20 MCH 26.9 pg (27.0-31.0) L 12/26/17 05:20 MCHC 33.9 g/dL (33.0-37.0) 12/26/17 05:20 RDW 15.7 % (11.5-14.5) H 12/26/17 05:20 Plt Count 96 K/uL (130-400) L 12/26/17 05:20 MPV 8.2 fl (7.2-11.7) 12/24/17 05:00 Neut % (Auto) 69.5 % (50.0-75.0) 12/24/17 05:00 Lymph % (Auto) 15.0 % (20.0-40.0) L 12/24/17 05:00 [place] % (Auto) 10.6 % (0.0-10.0) H 12/24/17 05:00 Eos % (Auto) 4.2 % (0.0-4.0) H 12/24/17 05:00 Baso % (Auto) 0.7 % (0.0-2.0) 12/24/17 05:00 Neut # (Auto) 3.1 K/uL (1.8-7.0) 12/24/17 05:00 Lymph # (Auto) 0.7 K/uL (1.0-4.3) L 12/24/17 05:00 [place] # (Auto) 0.5 K/uL (0.0-0.8) 12/24/17 05:00 Eos # (Auto) 0.2 K/uL (0.0-0.7) 12/24/17 05:00 Baso # (Auto) 0.0 K/uL (0.0-0.2) 12/24/17 05:00 PT 12.9 Seconds (9.8-13.1) 12/22/17 15:00 INR 1.2 (0.9-1.2) 12/22/17 15:00 APTT 28.6 Seconds (25.6-37.1) 12/22/17 15:00 Sodium 138 mmol/l (132-148) 12/26/17 05:20 Potassium 4.3 MMOL/L (3.6-5.0) 12/26/17 05:20 Chloride 101 mmol/L (98-107) 12/26/17 05:20 Carbon Dioxide 24 mmol/L (22-30) 12/26/17 05:20 Anion Gap 17 (10-20) 12/26/17 05:20 BUN 23 mg/dl (9-20) H 12/26/17 05:20 Creatinine 1.3 mg/dl (0.8-1.5) 12/26/17 05:20 Est GFR ( Amer) > 60 12/26/17 05:20 Est GFR (Non-Af Amer) 54 12/26/17 05:20 POC Glucose (mg/dL) 192 mg/dL (65-110) H 12/27/17 06:53 Random Glucose 216 mg/dL (75-110) H 12/26/17 05:20 Lactic Acid 1.5 MMOL/L (0.7-2.1) 12/24/17 12:08 Calcium 7.9 mg/dL (8.4-10.2) L 12/26/17 05:20 Phosphorus 2.9 mg/dl (2.5-4.5) 12/22/17 15:00 Magnesium 1.9 MG/DL (1.6-2.3) 12/22/17 15:00 Total Bilirubin 0.7 mg/dl (0.2-1.3) 12/26/17 05:20 AST 30 U/L (17-59) 12/26/17 05:20 ALT 36 U/L (21-72) 12/26/17 05:20 Alkaline Phosphatase 83 U/L (38-126) 12/26/17 05:20 Ammonia 63 umo/L (16-60) H D 12/22/17 15:00 Troponin I < 0.0120 ng/mL (0.00-0.120) 12/22/17 15:00 NT-Pro-B Natriuret Pep 356 pg/ml (0-900) 12/22/17 15:00 Total Protein 6.3 G/DL (6.3-8.2) 12/26/17 05:20 Albumin 2.5 g/dL (3.5-5.0) L 12/26/17 05:20 Globulin 3.8 gm/dL (2.2-3.9) 12/26/17 05:20 Albumin/Globulin Ratio 0.7 (1.0-2.1) L 12/26/17 05:20 Lipase 196 U/L (23-300) 12/22/17 15:00 Urine Opiates Screen Negative (NEGATIVE) 12/22/17 16:15 Urine Methadone Screen Negative (NEGATIVE) 12/22/17 16:15 Ur Barbiturates Screen Negative (NEGATIVE) 12/22/17 16:15 Ur Phencyclidine Scrn Negative (NEGATIVE) 12/22/17 16:15 Ur Amphetamines Screen Negative (NEGATIVE) 12/22/17 16:15 U Benzodiazepines Scrn Negative (NEGATIVE) 12/22/17 16:15 U Oth Cocaine Metabols Negative (NEGATIVE) 12/22/17 16:15 U Cannabinoids Screen Negative (NEGATIVE) 12/22/17 16:15 Alcohol, Quantitative < 10 mg/dl (0-10) 12/22/17 15:00 - Hospital Course Hospital Course: This is a 72 y/omale admitted for ascites. Has a hx of cirrhosis alcoholic and had hepC. Interventional radiology was called and patient had paracentesis where more than 3 liters of fluid was removed He did very well after that He had a low grade fever 2 days later hence was started on iv antibiotics. Discharge Exam - Head Exam Head Exam: NORMAL INSPECTION - Eye Exam Eye Exam: Normal appearance - Respiratory Exam Respiratory Exam: NORMAL BREATHING PATTERN - Cardiovascular Exam Cardiovascular Exam: REGULAR RHYTHM - GI/Abdominal Exam GI & Abdominal Exam: Normal Bowel Sounds Discharge Plan - Follow Up Plan Condition: STABLE Disposition: AGAINST MEDICAL ADVICE Instructions: Fluid in the Belly (Ascites) (DC), Abdominal Paracentesis (DC) Additional Instructions: advised follow up with PMD
--- NOTE | 2017-12-27 14:26 | US ---
Date of Procedure: 12/23/2017 PROCEDURE: Ultrasound-guided paracentesis, CPT 06798 Medications: 7 cc 1% Lidocaine HISTORY: Ascites, abdominal pain, cirrhosis TECHNIQUE: Following informed consent , the patient was placed supine on the stretcher and the site was marked. A limited abdominal ultrasound was performed that showed a large amount of intra-abdominal fluid. Procedural time out was called and the Pt's abdomen was marked and prepped and draped in the usual sterile fashion. Ultrasound-guided large volume paracentesis performed. A total of 3.8 liters of straw colored fluid was removed without complication. IMPRESSION: Ultrasound-guided large volume paracentesis.
--- NOTE | 2017-12-30 07:40 | PQF SEPSIS ---
Dr. Rico Consult dated 12/[address] Worley documented "gram positive sepsis." After study was pt treated for a diagnosis of sepsis? This form is a permanent part of the medical record Clarification of your documentation is requested to better reflect the severity of illness and intensity of treatment of your patient. Indicators present [] Temp < 96.8 or > 100.4 [] WBC count > 12,000/mm3 or <000/mm3 or 10% immature neutrophils [] Heart Rate > 90 [] Respiratory Rate > 20 [] Fever or hypothermia [] Chills [] Positive blood cultures [] Hypotension [] Metabolic acidosis (Elevated lactate level, anion gap or reduced blood pH) [] Acute confusion /Altered Mental Status [] Shock [] Other: [] Location in the medical record that reflects the above clinical findings: [] Treatment Provided: [] PHYSICIAN'S RESPONSE Based on your medical judgment of the clinical indicators outlined above, are you treating this patient for a known or suspected: [] Sepsis / Septicemia Please specify organism if known [] [] SIRS (Systemic Inflammatory Response Syndrome) [] Severe Sepsis (Sepsis with Associated Organ Dysfunction) [] Fever of Unknown Origin [] Other, please indicate: [] [] If Unable to Determine, please check the box, sign and date. Present On Admission (POA) Indicator: [] Present at the time of admission [] Not present at the time of admission [] Clinically Undetermined In responding to this query, please exercise your independent professional judgment. The fact that a question is asked does not imply that any particular answer is desired or expected. Thank you for your clarification on this documentation. If you have any questions please call:[ ] * Thank you, [ ]Silvina Monroy three dimensional map modeler LIT
== END 2017-12-27 09:26 | disposition left against medical advice (07) | DRG 872 ==
LOC: H.ER 13:39 → H.ERHOLD 20:40 → H.MEDSURG1 12-23 00:30 → OBSVTOIN 12-24 11:37
PROVIDERS: ADMIT Family Medicine; ATTEND Family Medicine
PROC: 0W9G3ZZ Drainage of Peritoneal Cavity, Percutaneous Approach (ICD-10-PCS; principal; 2017-12-23)
DX: A41.89 Other specified sepsis (principal); E11.40 Type 2 diabetes mellitus with diabetic neuropathy, unspecified; K70.31 Alcoholic cirrhosis of liver with ascites; B19.20 Unspecified viral hepatitis C without hepatic coma; Z91.14 Patient's other noncompliance with medication regimen; I10 Essential (primary) hypertension; F32.9 Major depressive disorder, single episode, unspecified; F41.9 Anxiety disorder, unspecified; R16.1 Splenomegaly, not elsewhere classified; F14.10 Cocaine abuse, uncomplicated